=== PATIENT | male | born 1985 | race Caucasian/White ===

== ENCOUNTER 2020-08-19 10:56 | Emergency (ER) | payer MEDICARE, MEDICAID, SELFPAY ==
[2020-08-19 11:18] VITALS: BP 118/80; PULSE 86; RESP 20; TEMP 36.8; O2SAT 95; BMI 27.3
[2020-08-19] MEDS: Lidocaine HCl 2%/Epi 1:100,000 20 ML VIAL INFILTRATI (13:10)
--- NOTE | 2020-08-19 13:22 | ED.FALL ---
HPI - Fall General Chief Complaint: Fall Stated Complaint: fall, head lac Time Seen by Provider: 08/19/20 12:45 History of Present Illness HPI Narrative: 35-year-old male who presents emergency department for evaluation of laceration to forehead after falling. The patient has a history of traumatic brain injury and has difficulty with balance. He states that he lost his balance fell and struck his forehead. He denied any loss of consciousness. He states that he was able to stop the bleeding but was concerned about the size the laceration and came to the emergency department for evaluation. The injury occurred approximately 2 hours prior to coming to the emergency department. He states that he has been asymptomatic since the fall. He denied headache, nausea, lightheadedness, dizziness, weakness. The patient does not know when his last tetanus shot was given. Related Data Allergies Allergy/AdvReac Type Severity Reaction Status Date / Time No Known Allergies Allergy Unverified 05/10/20 16:33 Review of Systems Review of Systems: Yes all other systems are reviewed and are negative [facility] Past Medical History [facility] Narrative: Patient has history of traumatic brain injury. He denies tobacco, alcohol or drug use. Social History Social History Advance Directives: No Advance Directives Information Provided: Yes Physical Exam Vital Signs: Vital Signs: Last Vital Signs Temp 98.3 F 08/19/20 11:18 Pulse 86 08/19/20 11:18 Resp 20 08/19/20 11:18 BP 118/80 08/19/20 11:18 Pulse Ox 95 08/19/20 11:18 Body Mass Index 27.3 Const: General: cooperative and no acute distress Orientation/consciousness: oriented to person and oriented to place HENMT: Head: Yes hematoma (Underneath laceration) and Yes other (Complex L frontal scalp plaque with C-shaped flap, 3 cm each side of flap) Ears: hearing grossly normal bilaterally General nose exam: Normal external nose present Face and sinus: Yes normal facial exam Mouth: Normal oral and palatal mucosa present Eyes: General: appearance normal, both eyes and all related structures Periorbital: periorbital findings normal Conjunctivae: conjunctivae normal Sclerae: sclerae normal Neck: Neck: Yes normal visual inspection and Yes full ROM Chest: Chest palpation & inspection: normal inspection of the chest Resp: Effort & Inspection: normal respiratory effort Neuro: General: oriented to person and oriented to place Psych: Appearance: grossly normal Mental Status: mental status grossly normal Course Course Course Narrative: 35-year-old male with history of traumatic brain injury lost his balance, fell and struck his head on the floor, sustaining a C-shaped laceration to his left forehead. The patient has been asymptomatic since the fall and I do not think he needs a CT scan at this time and I did discuss this with the patient. The laceration was repaired with 5.0 nylon sutures times 10 interrupted sutures. There was a narrow seen aspect to the flap which I did pin down but told patient that this flap may be a vascular and may not take. I told the patient to gently clean the wound daily and apply bacitracin twice a day. He believes that his last tetanus shot was greater than 5 years prior to his given a DTaP vaccination in the emergency department. She is to follow up with his doctor in 2 days for re-evaluation in the stitches should be removed in 7-10 days. Procedures Laceration Laceration 1: Site: other (Forehead) Side (If applicable): left Size (cm): 7.0 Description: flap (C-shaped) Depth: simple, single layer Local Anesthetic: lidocaine 2% and with epi Amount of anesthesia used (mL): 10 Pre-repair: wound explored Skin layer closed with: nylon Size (cm): 5-0 Number of sutures: 10 Technique: simple, interrupted Discharge Plan Discharge Clinical Impression: Fall Qualifiers: Encounter type: initial encounter Qualified Code(s): W19.XXXA - Unspecified fall, initial encounter Head injury Qualifiers: Encounter type: initial encounter Qualified Code(s): S09.90XA - Unspecified injury of head, initial encounter Traumatic hematoma of forehead Qualifiers: Encounter type: initial encounter Qualified Code(s): S00.83XA - Contusion of other part of head, initial encounter Laceration of forehead without complication Qualifiers: Encounter type: initial encounter Qualified Code(s): S01.81XA - Laceration without foreign body of other part of head, initial encounter Patient Disposition: Home, Self-Care Instructions: Facial Laceration (ED) Additional Instructions: The laceration on your forehead was repaired with 10 interrupted stitches. The stitches need to be removed in 5-7 days by your doctor. If you cannot remove these stitches then go to an urgent care clinic or return to the emergency department. Gently clean in the laceration daily with soap and water. Apply bacitracin twice a day for 7 days. Take ibuprofen 200 mg pills, 3 pills every 6 hours as needed for pain. Take Tylenol (acetaminophen) 500 mg pills, 2 pills every 4 to 6 hours as needed for pain. Follow-up with your doctor in 2 days for wound check. Return to the emergency department if her symptoms get worse or if you develop any new symptoms that are concerning to you.
[2020-08-19] MEDS: Bacitracin Oint 14 GM TUBE 1 APPL TOPICAL (13:47)
[2020-08-19 13:59] VITALS: PULSE 80; RESP 16
--- NOTE | 2020-08-19 14:00 | PC.NURSE ---
PT REPORTS ACCIDENTAL TRIP AND FALL AT HOME, STRUCK FOREHEAD SUSTAINING LAC TO L FORHEAD. PT SUTURED BY PROVIDER. PT DENIES LOC, NO PAIN OR COMPLAINTS. PT AWARE/AGREEABLE TO PLAN OF CARE AND PENDING D/C.
== END 2020-08-19 14:01 | disposition home or self-care (01) ==
PROVIDERS: Emergency Provider Emergency Medicine Emergency Medical Services; PCP Nurse Practitioner Family
DX: S01.81XA Laceration without foreign body of other part of head, initial encounter (principal); G44.309 Post-traumatic headache, unspecified, not intractable; R26.89 Other abnormalities of gait and mobility; W01.0XXA Fall on same level from slipping, tripping and stumbling without subsequent striking against object, initial encounter; Y93.01 Activity, walking, marching and hiking; Y92.9 Unspecified place or not applicable; Y99.9 Unspecified external cause status; Z23 Encounter for immunization
CPT/HCPCS: 12014; 90471; 90715; 99284

== ENCOUNTER 2020-08-26 12:14 | Emergency (ER) | payer MEDICARE, MEDICAID, SELFPAY ==
[2020-08-26 12:37] VITALS: BP 115/80; PULSE 98; RESP 18; O2SAT 95
--- NOTE | 2020-08-26 12:53 | ED.GENADULT ---
HPI - General Adult General Chief complaint: Wound/Laceration Stated complaint: suture removal Time Seen by Provider: 08/26/20 12:53 Source: patient Mode of arrival: ambulatory Limitations: no limitations History of Present Illness HPI narrative: Here for suture removal from the top forehead area was seen here on 08/19/2020 for lack resulting from a fall requiring 10 sutures. Offers no complaints. Onset (ago): day(s) Exacerbating factors: none Treatments prior to arrival: none Related Data Allergies Allergy/AdvReac Type Severity Reaction Status Date / Time No Known Allergies Allergy Unverified 05/10/20 16:33 Review of Systems Review of Systems: Constitutional: No Weight loss, No Fever, No Chills, No Night Sweats, No Fatigue, No Malaise ENT/Mouth: No Hearing loss, No Ear Pain, No Nasal Congestion, No Sinus Pain, No Hoarseness, No sore throat, No Rhinorrhea, No Swallowing Difficulty Eyes: No Eye Pain, No Swelling, No Redness, No Foreign Body, No Discharge, No Vision Changes Cardiovascular: No Chest Pain Respiratory: No Cough Musculoskeletal: No joint pain, No Myalgias, No Joint Swelling Skin: No Skin Lesions, No rash Neuro: No Weakness, No Numbness, No Paresthesias, No Loss of Consciousness, No Dizziness, No Headache Psych: No Social Issues Heme/Lymph: No Bruising, No Bleeding,No Lymphadenopathy Endocrine: No Polyuria, No Polydipsia, No Temperature Intolerance Yes all other systems are reviewed and are negative [facility] Social History Social History Alcohol intake: never Smoking Status: Never smoker Advance Directives: No Advance Directives Information Provided: Yes Physical Exam Vital Signs: Vital Signs: Last Vital Signs Pulse 98 08/26/20 13:01 Resp 18 08/26/20 13:01 BP 115/80 08/26/20 13:01 Pulse Ox 95 08/26/20 13:01 Body Mass Index 27.3 Review Const: General: cooperative and healthy appearing; No acute distress or intoxicated appearing Nutritional Appearance: average body habitus Orientation/consciousness: patient oriented x3 HENMT: Head: Yes normal to inspection Head images: 1. Site of the laceration with slight scabbing otherwise no swelling or erythema. No tender palpation. Ears: hearing grossly normal bilaterally Eyes: General: appearance normal, both eyes and all related structures Visual Call: normal visual call by confrontation Neck: Neck: Yes normal visual inspection, No positive Brudzinski's sign, No positive Kernig's sign and No tender Thyroid: Thyroid normal Resp: Auscultation: clear to auscultation bilaterally Cardio: Rhythm: regular rhythm Heart sounds: S1 normal heart sound present and S2 normal heart sound present Skin: General skin exam: no rashes or lesions noted Neuro: General: patient oriented x3 Extrem: General: Yes normal to inspection Procedures Procedure Narrative Procedure Narrative: Forehead suture site clean with alcohol prep wipe and using suture removal kit 10 sutures removed fully intact with ease. Wound slightly scab but closed. No swelling or sign infection. Covered with bacitracin and DSD. Discharge Plan Discharge Clinical Impression: Encounter for removal of sutures Patient Disposition: Home, Self-Care Instructions: Stitches Removal (ED) Additional Instructions: Keep site clean and dry You had 10 sutures removed from the left side of forehead Site appears to be healing well Because there is a healing scabbed I did put on a Steri-Strip allow this to follow-up in the next 3-4 days Do not submerge your head under water Monitor for any signs of infection including redness, swelling, discharge if any of this presents return to the emergency room right away otherwise follow up with her primary care doctor as directed Thank you Referrals: Mir Hill, [employer] [Primary Care Provider] - 1 week Interventions: ED Discharge Assessment Last Done: 08/26/20 13:11 Discharge Date/Time: 08/26/20 13:12
[2020-08-26 13:01] VITALS: BP 115/80; PULSE 98; RESP 18; O2SAT 95; BMI 27.3
== END 2020-08-26 13:12 | disposition home or self-care (01) ==
PROVIDERS: Emergency Provider Emergency Medicine; PCP Nurse Practitioner Family
DX: Z48.02 Encounter for removal of sutures (principal)
CPT/HCPCS: 99283

== ENCOUNTER 2020-10-23 11:11 | Outpatient (REF) | payer MEDICARE, MEDICAID, SELFPAY | END 2020-10-23 11:12 | disposition home or self-care (01) | LOC: HO.LAB 11:11 | PROVIDERS: Visit Provider Internal Medicine | DX: Z20.822 Contact with and (suspected) exposure to COVID-19 (principal) | CPT/HCPCS: 36415; C9803; U0003; U0005 ==

== ENCOUNTER 2021-05-13 09:38 | Outpatient (REF) | payer MEDICARE, MEDICAID, SELFPAY ==
--- NOTE | ~2021-05-13 | XR_ITS ---
EXAMINATION: XR ELBOW, LEFT CLINICAL INFORMATION: Pain. Bursal but they. COMPARISON: None TECHNIQUE: AP, lateral, and oblique views of the left elbow. FINDINGS: There is a moderate-sized olecranon process enthesophyte with posterior soft tissue swelling likely bursitis. The joint space is maintained. No acute fracture or loose body seen. No acute fracture or dislocation. XR/XR elbow LT min 3V IMPRESSION: Moderate-sized posterior olecranon process enthesophyte with moderate posterior elbow soft tissue swelling likely bursitis. No acute fracture.
== END 2021-05-13 09:39 | disposition home or self-care (01) ==
LOC: HO.HMGCX 09:38
PROVIDERS: PCP Nurse Practitioner Family; Visit Provider Internal Medicine
DX: Z13.89 Encounter for screening for other disorder (principal)
CPT/HCPCS: 73080

== ENCOUNTER 2021-05-22 09:23 | Emergency (ER) | payer MEDICARE, MEDICAID, SELFPAY ==
--- NOTE | ~2021-05-22 | US_ITS ---
EXAMINATION: ULTRASOUND EXTREMITY NONVASCULAR CLINICAL INFORMATION: Recent fall onto left elbow. Evaluate for hematoma versus abscess. COMPARISON: Previous x-ray 05/13/2021 TECHNIQUE: Grayscale and color imaging of the left elbow using a linear transducer FINDINGS: There is diffuse soft tissue swelling and increased vascularity in the area of palpable abnormality. No focal mass or fluid collection is seen. US/US extremity nonvascular crum IMPRESSION: Diffuse soft tissue swelling and increased vascularity. No focal abnormality seen by ultrasound.
--- NOTE | ~2021-05-22 | XR_ITS ---
EXAMINATION: XR ELBOW, LEFT CLINICAL INFORMATION: Pain and swelling. Trauma. COMPARISON: None TECHNIQUE: AP, lateral, and oblique views of the left elbow. FINDINGS: There is a small coronoid and olecranon process spur. No visible acute fracture or dislocation seen. There is no abnormal joint effusion. There is moderate posterior elbow soft tissue swelling.. XR/XR elbow LT min 3V IMPRESSION: Moderate size olecranon process and small coronoid process spurs from old injury. There is moderate posterior elbow soft tissue swelling. No visible acute fracture or dislocation seen.
--- NOTE | 2021-05-22 09:33 | ED.GENADULT ---
HPI - General Adult General Chief complaint: Extremity Injury, Upper Stated complaint: L elbow pain Time Seen by Provider: 05/22/21 09:33 Source: patient and family Limitations: no limitations History of Present Illness HPI narrative: Patient presents to the ER complaining of left elbow pain. Patient had a recent fall on the elbow with a small abrasion was treated with antibiotics. Patient was seen at an [facility] urgent care today and told question infectious bursitis. Patient has a history of a TBI according to family. Patient denies any recent fevers. Patient family are unsure of what antibiotics he was recently on. Patient denies any IV drug use. Patient denies history of diabetes. Symptoms are mild to moderate pain increases with range of motion. Related Data Previous Rx's Medication Instructions Recorded meloxicam 15 mg tablet 15 mg PO DAILY #14 tab 05/13/21 doxycycline hyclate 100 mg capsule 100 mg PO BID 14 Days #28 cap 05/22/21 tramadol 50 mg tablet 50 mg PO Q12H PRN #10 tab 05/22/21 Allergies Allergy/AdvReac Type Severity Reaction Status Date / Time No Known Allergies Allergy Verified 04/30/21 17:10 Review of Systems Review of Systems: Constitutional : No Weight loss, No Fever, No chills ENT/Mouth : Denies sore throat nasal congestion Cardiovascular : No Chest Pain, No SOB Respiratory : No Cough, No Sputum, No Wheezing, No Smoke Exposure, No Dyspnea Gastrointestinal : No Nausea, No Vomiting, No Diarrhea, no abdominal pain Musculoskeletal : Left elbow forearm pain Neuro : No Weakness, No Numbness, No Paresthesias, No Loss of Consciousness, No Dizziness, No Headache Psych : No Anxiety/Panic, No Depression, No SI/HI/AH/VH, No Social Issues, Heme/Lymph: Skin abrasion left forearm positive erythema and redness Endocrine : No Polyuria, No Polydipsia, No Temperature Intolerance PMFSH Past Medical History Attestation statement: The following information was validated with the patient. Medical History (Updated 05/22/21 @ 12:30 by Griffin Wayne) Brain injury Social History Social History Alcohol intake: never Advance Directives: No Physical Exam Vital Signs: Vital Signs: Last Vital Signs Temp 97.9 F 05/22/21 09:46 Pulse 101 H 09/29/21 09:46 Resp 16 05/22/21 09:46 BP 135/86 05/22/21 09:46 Pulse Ox 97 05/22/21 09:46 Body Mass Index 30.1 vital signs have been reviewed as normal and appeared to be correct. Blood pressure normal. Heart rate normal. Respiration rate normal. Temperature normal. Oxygen saturation normal. Appearance: Alert. Oriented X3. No acute distress. Head: Normal external exam. Normocephalic. Atraumatic. Eyes: PERRLA. EOMI. ENT: Pharynx normal. Uvula midline. Moist mucous membranes. Neck: Soft full range of motion, no JVD CVS: Heart regular rate and rhythm no murmurs and rubs Respiratory: Breath sounds are clear to auscultation bilaterally. No accessory muscle use noted. Abdomen: Soft nontender no rebound or guarding positive bowel sounds Back: No CVA tenderness. Full range of motion noted. Skin: Left forearm area of induration. No obvious fluctuance in the left forearm. Positive firmness question hematoma Extremities: Left elbow olecranon positive edema nontender positive tenderness just distal to the elbow forearm with some firmness and erythema. No obvious lymphangitis noted. Distal pulses are intact full range of motion of the left upper extremity. Medial and lateral epicondyles nontender Neuro: Oriented X 3. No motor deficit. No sensory deficit. Reflexes normal. Course Course Course Narrative: Left forearm abscess Traumatic bursitis Olecranon bursitis Left elbow infectious bursitis Left elbow fracture Contusion forearm hematoma Patient family reports the original injury happened 2 months prior. Patient has since had x-rays of the left elbow that were negative. And also trialed on antibiotics. Patient's olecranon is nontender with no obvious erythema or discharge at this time. 11:03 a.m. Case discussed with Dr. Nur ultrasound shows no obvious collection of fluid to drain at this time. CBC BMP is pending the olecranon bursitis follow-up with Orthopedic will be recommended. Would not drain olecranon bursa at this time secondary risk of infection. 11:29 a.m. 2 g Ancef IV will Natan shoe left elbow x-ray at this time rule out proximal radial head fracture 12:28 p.m. Patient has scheduled follow-up with PCP patient is also recommended follow-up with orthopedics. Sling rest elevation antibiotics as directed. Medical Decision Making Lab Data Result diagrams: 05/22/21 11:05 05/22/21 11:05 Labs: Lab Results 05/22/21 05/22/21 Range/Units 11:05 11:05 WBC 8.5 (4.8-10.8) X10*3/uL RBC 5.31 (4.60-5.80) X10*6/uL Hgb 15.4 (14.0-18.0) g/dl Hct 45.8 (42-52) % MCV 86.3 (80-98) fL MCH 29.0 (27.0-33.0) pg MCHC 33.6 (31.0-36.0) g/dl RDW 13.2 (11.0-16.0) % Plt Count 212 (160-400) X10*3/uL MPV 9.8 (9.4-12.4) fL Immature Gran % (Auto) 0.4 (0.0-0.4) % Neut % (Auto) 76.0 H (45-73) % Lymph % (Auto) 12.9 L (20-40) % Avery % (Auto) 9.7 (2-11) % Eos % (Auto) 0.6 (0-4) % Baso % (Auto) 0.4 (0-2) % Lymph # (Auto) 1.1 L (1.2-4.9) X10*3/uL Avery # (Auto) 0.8 (0.1-1.2) X10*3/uL Eos # (Auto) 0.1 (0.0-0.4) X10*3/uL Baso # (Auto) 0.0 (0.0-0.2) X10*3/uL Abs Immat Gran (auto) 0.03 (0.00-0.03) X10*3/uL Absolute Neuts (auto) 6.5 (2.0-8.3) X10*3/uL Absolute Nucleated RBC 0.000 (0.0-0.012) X10*3/uL Nucleated RBC % (auto) 0.0 (0.0-0.2) /100WBC Sodium 138 (135-145) mmol/L Potassium 4.1 (3.3-5.1) mmol/L Chloride 106 (96-108) mmol/L Carbon Dioxide 23 (22-29) mmol/L Anion Gap 13 (12-20) BUN 14 (9-16) mg/dL Creatinine 0.73 (0.5-1.4) mg/dL Estim Creat Clear Calc 150.8 Estimated GFR > 60 Random Glucose 109 (60-115) mg/dL Calcium 8.8 (8.4-10.2) mg/dL Imaging Data US left upper ext : Radiologist's impression: [address] [address] Ultrasound Report Signed Patient: Loki Esteves MR#: [id number] : 1985 Acct:[id number] Age/Sex: 36 / M ADM Date: 05/22/21 Loc: .ED Attending Dr: Ordering Physician: Griffin Wayne Date of Service: 05/22/21 Procedure(s): US extremity nonvascular crum Accession Number(s): [id number] cc: Griffin Wayne ~ EXAMINATION: ULTRASOUND EXTREMITY NONVASCULAR CLINICAL INFORMATION: Recent fall onto left elbow. Evaluate for hematoma versus abscess.? COMPARISON: Previous x-ray 05/13/2021? TECHNIQUE: Grayscale and color imaging of the left elbow using a linear transducer ? FINDINGS: There is diffuse soft tissue swelling and increased vascularity in the area of palpable abnormality. No focal mass or fluid collection is seen. US/US extremity nonvascular crum IMPRESSION: Diffuse soft tissue swelling and increased vascularity. No focal abnormality seen by ultrasound. Dictated By: Carol Jimenez MD Signed By: <Electronically signed by Carol Jimenez MD in OV> 05/22/21 1048 DD/ 0955 TD/TT:? Business Intelligence Developer: JESSA elbow: Radiologist's impression: [address] [address] XRay Report Signed Patient: Loki Esteves MR#: [id number] : 1985 Acct:[id number] Age/Sex: 36 / M ADM Date: 05/22/21 Loc: .ED Attending Dr: Ordering Physician: Griffin Wayne Date of Service: 05/22/21 Procedure(s): XR elbow LT min 3V Accession Number(s): [id number] cc: Griffin Wayne ~ EXAMINATION: XR ELBOW, LEFT CLINICAL INFORMATION: Pain and swelling. Trauma.? COMPARISON: None? TECHNIQUE: AP, lateral, and oblique views of the left elbow. FINDINGS: There is a small coronoid and olecranon process spur. No visible acute fracture or dislocation seen. There is no abnormal joint effusion. There is moderate posterior elbow soft tissue swelling.. XR/XR elbow LT min 3V IMPRESSION: Moderate size olecranon process and small coronoid process spurs from old injury. There is moderate posterior elbow soft tissue swelling. ? No visible acute fracture or dislocation seen. Dictated By: Roland Aguirre MD Signed By: <Electronically signed by Roland Aguirre MD in OV> 05/22/21 1206 DD/ 1128 Discharge Plan Discharge Clinical Impression: Bilateral olecranon bursitis Cellulitis Qualifiers: Site of cellulitis: extremity Site of cellulitis of extremity: upper extremity Laterality: left Qualified Code(s): L03.114 - Cellulitis of left upper limb Patient Disposition: Home, Self-Care Additional Instructions: It is important to rest and elevate the left upper extremity Continue antibiotics as directed Follow-up with PCP and Orthopedics. Prescriptions: New doxycycline hyclate 100 mg capsule 100 mg PO BID 14 Days Qty: 28 RF: 0 tramadol 50 mg tablet 50 mg PO Q12H PRN (Reason: pain) Qty: 10 RF: 0 No Action meloxicam 15 mg tablet 15 mg PO DAILY Qty: 14 RF: 0 Referrals: Juan Carlos Hendrickson MD [Physician] - 2 days (Olecranon bursitis)
[2021-05-22 09:46] VITALS: BP 135/86; PULSE 101; RESP 16; TEMP 36.6; O2SAT 97; BMI 30.1
[2021-05-22 11:15] LABS: MANUAL DIFF FLAG NO
[2021-05-22] MEDS: Ibuprofen 600 MG TABLET PO (11:17)
[2021-05-22 11:19] LABS: Basophils Percent Auto 0.4 % (0-2); Eosinophils Absolute Auto 0.1 X10*3/uL (0.0-0.4); Eosinophils Percent Auto 0.6 % (0-4); Hematocrit 45.8 % (42-52); Hemoglobin 15.4 g/dl (14.0-18.0); Imm Gran Abs Auto 0.03 X10*3/uL (0.00-0.03); Imm Gran Pct Auto 0.4 % (0.0-0.4); Lymphocytes Absolute Auto 1.1 X10*3/uL (1.2-4.9); Lymphocytes Percent Auto 12.9 % (20-40); Mean Corpuscular HGB Conc 33.6 g/dl (31.0-36.0); Mean Corpuscular Volume 86.3 fL (80-98); Mean Platelet Volume 9.8 fL (9.4-12.4); Monocytes Absolute Auto 0.8 X10*3/uL (0.1-1.2); Monocytes Percent Auto 9.7 % (2-11); Neutrophils Absolute Auto 6.5 X10*3/uL (2.0-8.3); Platelet Count 212 X10*3/uL (160-400); Red Blood Count 5.31 X10*6/uL (4.60-5.80); Red Cell Distribution Width 13.2 % (11.0-16.0); White Blood Count 8.5 X10*3/uL (4.8-10.8)
[2021-05-22 11:32] LABS: Anion Gap 13 (12-20); Blood Urea Nitrogen 14 mg/dL (9-16); Calcium 8.8 mg/dL (8.4-10.2); Carbon Dioxide 23 mmol/L (22-29); Chloride 106 mmol/L (96-108); Creatinine Clr Calc Pharmacy 150.8; Estimated Glomerular Filt Rate > 60; Glucose Random 109 mg/dL (60-115); Potassium 4.1 mmol/L (3.3-5.1); Sodium 138 mmol/L (135-145)
[2021-05-22] MEDS: ceFAZolin Sodium/Dextrose,Iso 2 GM/50 ML PIGGYBACK IV (11:58)
[2021-05-22] MEDS: traMADoL HCL 50 MG TABLET PO (12:29)
== END 2021-05-22 12:57 | disposition home or self-care (01) ==
PROVIDERS: Physician Assistant; Emergency Provider Emergency Medicine Emergency Medical Services; PCP Nurse Practitioner Family
DX: M70.21 Olecranon bursitis, right elbow (principal); M70.22 Olecranon bursitis, left elbow; L03.114 Cellulitis of left upper limb; Z79.899 Other long term (current) drug therapy
CPT/HCPCS: 36415; 73080; 76882; 80048; 85025; 96365; 99284; J0690

== ENCOUNTER 2021-08-14 23:37 | Emergency (ER) | payer MEDICARE, MEDICAID, SELFPAY ==
--- NOTE | ~2021-08-14 | CT_ITS ---
EXAMINATION: CT HEAD WITHOUT CONTRAST CLINICAL INFORMATION: History of TBI. Head injury. COMPARISON: 03/21/2020 TECHNIQUE: Contiguous axial imaging was performed from the skull base to vertex without intravenous contrast. This CT examination was performed using dose optimization techniques as appropriate, variously including the following: * Automated exposure control * Adjustment of mA and/or kV according to patient size (this includes techniques or standardized protocols for targeted exams where dose is matched to indication/reason for exam; i.e. extremities or head) Use of iterative reconstruction technique DLP: 922 mGy-cm. FINDINGS: There is no evidence of acute intracranial hemorrhage or territorial infarction. No abnormal mass effect or midline shift is seen. Gonzalez to white matter differentiation is well preserved. No extra-axial fluid collections are identified. No hydrocephalus. No significant volume loss. Area of encephalomalacia at the high right frontal lobe, unchanged. The osseous structures and soft tissues are normal. The mastoid air cells and visualized portions of the paranasal sinuses are well aerated. CT/CT head/brain wo con IMPRESSION: No acute intracranial pathology.
[2021-08-15 00:08] VITALS: BP 128/77; PULSE 84; RESP 17; TEMP 36.9; O2SAT 96; BMI 27.3
--- NOTE | 2021-08-15 00:12 | ED_ITS ---
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 Patient reports he was taking out his earring, lost his balance, and fell to ground hitting head on radiator. Denies LOC. Denies any anticoagulation. Denies symptoms prior to fall. Denies headache, vision changes, nausea/vomiting, CP/SOB, abdominal pain. Tetanus up-to-date MD complaint: fall Onset (ago): minute(s) Fall from: standing Related Data Previous Rx's Medication Instructions Recorded doxycycline hyclate 100 mg capsule 100 mg PO BID 14 Days #28 cap 05/25/21 Allergies Allergy/AdvReac Type Severity Reaction Status Date / Time No Known Allergies Allergy Verified 06/10/21 07:49 Review of Systems Review of Systems: Constitutional: No Fever, No Chills, No Fatigue, No Malaise ENT/Mouth: No Hearing loss, No Ear Pain, No Nasal Congestion, No sore throat, No Rhinorrhea, No Swallowing Difficulty Eyes: No Eye Pain, No Swelling, No Redness, No Discharge, No Vision Changes Cardiovascular: No Chest Pain, No SOB, No Edema Respiratory: No Cough, No Dyspnea Gastrointestinal: No Nausea, No Vomiting, No Diarrhea, No Constipation, No Abdominal pain Genitourinary: No Dysuria, No Urinary Incontinence, No Urgency, No Flank Pain Musculoskeletal: No joint pain, No Myalgias, No Joint Swelling Skin: + Skin Lesions, No rash Neuro: No Weakness, No Loss of Consciousness, No Dizziness, No Headache Yes all other systems are reviewed and are negative Neurologic: Denies Abnormal speech present PMFSH Past Medical History Attestation statement: The following information was validated with the patient. Medical History Brain injury Social History Social History Housing: House Alcohol intake: never Patient Tobacco Use Status: Former Tobacco user (15 years ) Tobacco use type: Cigarette Advance Directives: No Current occupational status: disabled Physical Exam Vital Signs: Vital Signs: Last Vital Signs Temp 98.4 F 12/23/21 00:08 Pulse 84 08/15/21 00:08 Resp 17 08/15/21 00:08 BP 128/77 08/15/21 00:08 Pulse Ox 96 08/15/21 00:08 BMI result Body Mass Index 27.3 Const: General: cooperative, healthy appearing and no acute distress Orientation/consciousness: patient oriented x3 Limitations: no limitations HENMT: Other: + 2.5 linear laceration noted to right parietal region. Bleeding controlled. No underlying hematoma Ears: hearing grossly normal bilaterally General nose exam: Normal external nose present Face and sinus: Yes normal facial exam Throat: Yes posterior oropharynx normal Eyes: General: appearance normal, both eyes and all related structures Pupils: Equal, round and reactive pupils present EOM: EOMs intact bilaterally Neck: Other: No midline cervical spinous tenderness/step-off or deformity Neck: Yes normal visual inspection Resp: Effort & Inspection: normal respiratory effort and no respiratory distress Cardio: Rate: regular rate Heart sounds: S1 normal heart sound present and S2 normal heart sound present GI: Inspection: Yes normal to inspection Palpation (GI): Soft to palpation, nontender and no guarding Skin: Rashes: no rashes Neuro: General: patient oriented x3, tone normal, moves all extremities, no focal motor deficits and CN's II-XI intact bilaterally Cranial nerves: Yes CN's II-XII intact bilaterally, Yes Equal, round and reactive pupils present and Yes Bilaterally intact EOM present Cognition (Neuro): normal cognition Speech: No Abnormal speech present Gait exam (Neuro): Normal gait present Extrem: General: Yes normal to inspection Course Course Course Narrative: -99-- ED care transferred to [facility] pending Head CT and anticipated d/c home Procedures Laceration Laceration 1: Site: scalp Side (If applicable): right Size (cm): 2.5 Description: linear Depth: simple, single layer Pre-repair: wound explored Number of sutures: 5 (vipin) MDM - Fall MDM Narrative Medical decision making narrative: 36-year-old male with past medical history of TBI presenting to the ED complaining of laceration to 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 On exam vital signs stable, NAD/well-appearing, no focal neuro deficits, 2.5 cm laceration noted right parietal region, bleeding controlled. Concern for ICH/fracture. Plan: Head CT, repair laceration with vipin Medical Records Attestation: I reviewed the patient's medical records. Lab Data Attestation: I reviewed the patient's lab results. Discharge Plan Discharge Clinical Impression: Laceration of scalp Qualifiers: Encounter type: initial encounter Qualified Code(s): S01.01XA - Laceration without foreign body of scalp, initial encounter Fall Qualifiers: Encounter type: initial encounter Qualified Code(s): W19.XXXA - Unspecified fall, initial encounter Patient Disposition: Still a Patient Instructions: Head Laceration (ED) Additional Instructions: You need to have your vipin taken out in 7-10 days, return to any emergency department or urgent care Keep area dry and clean. Do not scrub. pat dry If area begins look infected, is red, there is drainage or you fever please return to the ED. If you have constant or worsening headache, nausea, or vomiting please return to the ED Prescriptions: No Action doxycycline hyclate 100 mg capsule 100 mg PO BID 14 Days Qty: 28 RF: 0 Referrals: ED Physician,Generic [Emergency Provider] - 1 week (7-10 days for staple removal)
--- NOTE | 2021-08-15 01:03 | PC.NURSE ---
REPORT GIVEN TO FERNANDO RUIZ.
== END 2021-08-15 01:24 | disposition home or self-care (01) ==
PROVIDERS: Emergency Provider Student in an Organized Health Care Education/Training Program; PCP Nurse Practitioner Family
DX: S01.01XA Laceration without foreign body of scalp, initial encounter (principal); G44.309 Post-traumatic headache, unspecified, not intractable; W01.0XXA Fall on same level from slipping, tripping and stumbling without subsequent striking against object, initial encounter; Y93.9 Activity, unspecified; Y92.9 Unspecified place or not applicable; Y99.9 Unspecified external cause status; Z79.899 Other long term (current) drug therapy; Z87.891 Personal history of nicotine dependence
CPT/HCPCS: 70450; 99283; 99284

== ENCOUNTER 2021-08-26 16:52 | Emergency (ER) | payer MEDICARE, MEDICAID, SELFPAY ==
[2021-08-26 17:58] VITALS: BP 125/81; PULSE 81; RESP 16; TEMP 36.4; O2SAT 97; BMI 27.3
--- NOTE | 2021-08-26 18:12 | ED.WOUNDLAC ---
HPI - Wound/Laceration General Chief Complaint: Wound/Laceration Stated Complaint: staple removal Time Seen by Provider: 08/26/21 18:12 Source: patient Mode of arrival: ambulatory Limitations: no limitations History of Present Illness HPI narrative: 36 y/o male presenting for evaluation of his head wound and staple removal. He was seen here on 08/15 after a fall and required 5 vipin for closure. He reports no issues and he denies any pain, redness or drainage. Location: scalp Place: outdoors Patient tetanus UTD: Yes Context: accidental Associated symptoms: none Related Data Previous Rx's Medication Instructions Recorded doxycycline hyclate 100 mg capsule 100 mg PO BID 14 Days #28 cap 05/25/21 Allergies Allergy/AdvReac Type Severity Reaction Status Date / Time No Known Allergies Allergy Verified 06/10/21 07:49 Review of Systems Review of Systems: Constitutional: No Fever, No Chills Gastrointestinal: No Nausea, No Vomiting Musculoskeletal: No joint pain, No Myalgias Skin: + Skin Lesions, No rash Neuro: No Weakness, No Numbness, No Dizziness, No Headache Heme/Lymph: No Bruising PMFSH Past Medical History Medical History Brain injury Social History Social History Housing: House Alcohol intake: never Patient Tobacco Use Status: Former Tobacco user (15 years ) Tobacco use type: Cigarette Advance Directives: No Advance Directives Information Provided: No Current occupational status: disabled Physical Exam Vital Signs: Vital Signs: Last Vital Signs Temp 97.5 F 08/26/21 17:58 Pulse 81 08/26/21 17:58 Resp 16 08/26/21 17:58 BP 125/81 08/26/21 17:58 Pulse Ox 97 08/26/21 17:58 BMI result Body Mass Index 27.3 Appearance: Alert. Oriented X3. No acute distress. HEENT: right posterior parietal scalp with crusting, appropriate healing with [address] CVS: Normal heart rate and rhythm. Pulses normal. Respiratory: No respiratory distress. Skin: Skin warm and dry. Normal skin color. Normal skin turgor. No rashes. Extremities: atraumatic, normal inspection Neuro: awake and alert, slow to respond but this is baseline Course Course Course Narrative: 36 y/o male presenting for staple removal. He has [address] on his posterior right parietal area that is healed appropriately. Five vipin are removed with no complications. Patient tolerated well. Wound care discussed with patient he is stable for discharge home. Discharge Plan Discharge Clinical Impression: Encounter for removal of vipin Patient Disposition: Home, Self-Care Instructions: Stitches Removal (ED) Additional Instructions: follow up with your doctor as needed Prescriptions: No Action doxycycline hyclate 100 mg capsule 100 mg PO BID 14 Days Qty: 28 RF: 0
== END 2021-08-26 18:34 | disposition home or self-care (01) ==
PROVIDERS: Emergency Provider Emergency Medicine; PCP Nurse Practitioner Family
DX: Z48.02 Encounter for removal of sutures (principal); S01.01XD Laceration without foreign body of scalp, subsequent encounter; W19.XXXD Unspecified fall, subsequent encounter
CPT/HCPCS: 99282; 99283

== ENCOUNTER 2021-09-12 11:43 | Outpatient (REF) | payer MEDICARE, MEDICAID, SELFPAY ==
[2021-09-12 12:03] LABS: COVID-19 Test Negative (Negative)
== END 2021-09-12 11:44 | disposition home or self-care (01) ==
LOC: HO.LAB 11:43
PROVIDERS: Visit Provider Internal Medicine
DX: Z20.822 Contact with and (suspected) exposure to COVID-19 (principal)
CPT/HCPCS: 87635; C9803

== ENCOUNTER 2022-03-21 07:48 | Outpatient (REF) | payer MEDICARE, MEDICAID, SELFPAY ==
[2022-03-21 08:25] LABS: COVID-19 Test Positive (Negative)
== END 2022-03-21 07:49 | disposition home or self-care (01) ==
LOC: HO.LAB 07:48
PROVIDERS: Visit Provider Internal Medicine
DX: Z20.822 Contact with and (suspected) exposure to COVID-19 (principal)
CPT/HCPCS: 87635; C9803

== ENCOUNTER 2022-03-25 20:06 | Emergency (ER) | payer MEDICARE, MEDICAID, SELFPAY ==
--- NOTE | ~2022-03-25 | CT_ITS ---
EXAMINATION: CT HEAD WITHOUT CONTRAST CT CERVICAL SPINE WITHOUT CONTRAST CLINICAL INFORMATION: Headache. Neck pain. Fall. COMPARISON: Multiple priors. Most recent exam CT head 08/15/2021 TECHNIQUE: Imaging was performed from the skull base to vertex without intravenous administration of contrast. In addition, helical noncontrast CT imaging was acquired through the cervical spine and source images were reviewed along with axial reconstructions and sagittal and coronal MPRs. [This CT examination was performed using dose optimization techniques as appropriate, variously including the following: *Automated exposure control *Adjustment of mA and/or kV according to patient size (this includes techniques or standardized protocols for targeted exams where dose is matched to indication/reason for exam; i.e. extremities or head) *Use of iterative reconstruction technique] DLP: 1462 mGy-cm FINDINGS: HEAD: Left sided parietal scalp hematoma. No skull fracture. 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 No intracranial mass, hemorrhage, or midline shift is visualized. The ventricles and sulci are proportional. No extra-axial collections are identified. Sinus mucosal disease in the ethmoid sinuses bilateral. Mastoid air cells and middle ear cavities are normally aerated. CERVICAL SPINE: There is no evidence of acute cervical spine fracture. Vertebral bodies remain normal in height. There are degenerative endplate spurs at C3-C4, C4-C5, C5-C6 and C6-C7. Mild disc height narrowing at C4-C5 through C6-C7. The facet joints are normal. Cervical vertebrae have normal alignment. No pre- or paravertebral soft tissue abnormality is identified. Limited assessment of the lung apices is unremarkable. CT/CT cervical spine wo con IMPRESSION: 1. No acute intracranial pathology. 2. No CT evidence of acute cervical spine fracture or traumatic subluxation
[2022-03-25 20:19] VITALS: BP 140/87; PULSE 93; RESP 18; TEMP 36.6; O2SAT 99
--- NOTE | 2022-03-25 20:19 | ED_ITS ---
HPI - Fall General Chief Complaint: Fall Stated Complaint: head strike Time Seen by Provider: 03/25/22 20:14 Source: patient Mode of arrival: EMS Limitations: no limitations History of Present Illness HPI Narrative: Patient with history of TBI was going upstairs lost balance and fell backwards came with laceration to the occipital area no loss of consciousness no seizures patient COVID positive on 03/21 not vaccinated no shortness of breath or cough Related Data Previous Rx's Medication Instructions Recorded cane #1 ea 10/16/21 Allergies Allergy/AdvReac Type Severity Reaction Status Date / Time No Known Allergies Allergy Verified 12/26/21 14:40 Review of Systems Review of Systems: Yes all other systems are reviewed and are negative [facility] Past Medical History Medical History Brain injury Social History Social History Housing: House Alcohol intake: unknown Patient Tobacco Use Status: Former Tobacco user Tobacco use type: Cigarette e-Cigarette/Vaping Use: Never Used Second Hand Smoke Exposure: No Use of substances other than those prescribed or required for medical reasons: No Advance Directives: No Advance Directives Information Provided: No Current occupational status: disabled Cognitive needs: Yes Hearing needs: No Vision needs: No Physical Exam Vital Signs: Vital Signs: Last Vital Signs Temp 99.1 F 03/25/22 22:00 Pulse 74 03/25/22 22:00 Resp 16 03/25/22 22:00 BP 135/75 03/25/22 22:00 Pulse Ox 98 03/25/22 22:00 O2 Del Method 03/25/22 22:00 BMI result Body Mass Index 38.0 Appearance: Alert. Oriented X3. . Eyes: PERRLA, No Nystagmus ENT: Pharynx normal. Oral Mucosa moist laceration to the back of the scalp Neck: Normal inspection. Neck supple. CVS: Normal heart rate and rhythm. Pulses normal. Respiratory: No respiratory distress. Equal air entry bilateral, no wheezing/rales/rhonchi Abdomen: Soft and nontender. Bowel sounds are present, no mass palpable, no CVA tenderness Skin: Skin warm and dry. Normal skin color. Normal skin turgor. Extremities: No lower extremity edema. No calf tenderness Neuro: Oriented X 3. No motor deficit. No sensory deficit.No cerebellar signs , cranial nerves II-XII intact slow to speak Const: General: healthy appearing and well developed HEENT: Head images: 1. 8 cm long laceration Ears: hearing grossly normal bilaterally Procedures Laceration Laceration 1: Site: scalp Side (If applicable): left Size (cm): 8 Description: linear Skin layer closed with: other ([place]#[id number]) MDM - Fall MDM Narrative Medical decision making narrative: Patient had CT and C-spine negative labs are stable laceration stapled bleeding controlled discharge patient home Lab Data Attestation: I reviewed the patient's lab results. Result diagrams: 03/25/22 20:57 03/25/22 20:57 Labs: Lab Results 03/25/22 03/25/22 03/25/22 Range/Units 20:12 20:57 20:57 WBC 5.5 (4.8-10.8) X10*3/uL RBC 5.26 (4.60-5.80) X10*6/uL Hgb 15.3 (14.0-18.0) g/dl Hct 43.3 (42.0-52.0) % MCV 82.3 (80.0-98.0) fL MCH 29.1 (27.0-33.0) pg MCHC 35.3 (31.0-36.0) g/dl RDW 13.0 (11.0-16.0) % Plt Count 231 (160-400) X10*3/uL MPV 9.7 (9.4-12.4) fL Immature Gran % (Auto) 0.4 (0.0-0.4) % Neut % (Auto) 53.7 (45-73) % Lymph % (Auto) 36.6 (20-40) % [place] % (Auto) 7.3 (2-11) % Eos % (Auto) 1.6 (0-4) % Baso % (Auto) 0.4 (0-2) % Lymph # (Auto) 2.0 (1.2-4.9) X10*3/uL [place] # (Auto) 0.4 (0.1-1.2) X10*3/uL Eos # (Auto) 0.1 (0.0-0.4) X10*3/uL Baso # (Auto) 0.0 (0.0-0.2) X10*3/uL Abs Immat Gran (auto) 0.02 (0.00-0.03) X10*3/uL Absolute Neuts (auto) 2.9 (2.0-8.3) x10*3/uL Absolute Nucleated RBC 0.000 (0.0-0.012) X10*3/uL Nucleated RBC % (auto) 0.0 (0.0-0.2) /100WBC Sodium 139 (135-145) mmol/L Potassium 3.6 (3.3-5.1) mmol/L Chloride 107 (96-108) mmol/L Carbon Dioxide 22 (22-29) mmol/L Anion Gap 14 (12-20) BUN 12 (9-16) mg/dL Creatinine 0.75 (0.5-1.4) mg/dL Estim Creat Clear Calc TNP Estimated GFR > 60 Random Glucose 113 (60-115) mg/dL Calcium 8.7 (8.4-10.2) mg/dL Magnesium 2.1 (1.6-2.6) mg/dL Total Bilirubin 0.4 (0.0-1.0) mg/dL AST 35 (5-37) U/L ALT 62 H (0-40) U/L Alkaline Phosphatase 79 (39-117) U/L Total Protein 7.4 (6.5-8.0) g/dL Albumin 4.0 (3.5-5.0) g/dL Ethyl Alcohol < 10 mg/dL COVID-19 ([facility]) Positive A (Negative) COVID-19 Clin Com See Note Discharge Plan Discharge Clinical Impression: Laceration of scalp, Head injury Patient Disposition: Home, Self-Care Instructions: Laceration (ED), Head Injury (ED) Additional Instructions: Local care as advised [place] removal in 7-10 days Prescriptions: No Action (DME) cane Device See Rx Instructions .Route Qty: 1 0RF Rx Instructions: As directed Interventions: ED Discharge Assessment Last Done: 03/25/22 22:42 Discharge Date/Time: 03/25/22 22:43
[2022-03-25 21:03] LABS: MANUAL DIFF FLAG NO
[2022-03-25 21:07] LABS: Basophils Percent Auto 0.4 % (0-2); Eosinophils Absolute Auto 0.1 X10*3/uL (0.0-0.4); Eosinophils Percent Auto 1.6 % (0-4); Hematocrit 43.3 % (42.0-52.0); Hemoglobin 15.3 g/dl (14.0-18.0); Imm Gran Abs Auto 0.02 X10*3/uL (0.00-0.03); Imm Gran Pct Auto 0.4 % (0.0-0.4); Lymphocytes Percent Auto 36.6 % (20-40); Mean Corpuscular HGB Conc 35.3 g/dl (31.0-36.0); Mean Corpuscular Hemoglobin 29.1 pg (27.0-33.0); Mean Corpuscular Volume 82.3 fL (80.0-98.0); Mean Platelet Volume 9.7 fL (9.4-12.4); Monocytes Absolute Auto 0.4 X10*3/uL (0.1-1.2); Monocytes Percent Auto 7.3 % (2-11); Neutrophils Absolute Auto 2.9 x10*3/uL (2.0-8.3); Neutrophils Percent Auto 53.7 % (45-73); Platelet Count 231 X10*3/uL (160-400); Red Blood Count 5.26 X10*6/uL (4.60-5.80); White Blood Count 5.5 X10*3/uL (4.8-10.8)
[2022-03-25 21:13] LABS: COVID-19 Test Positive (Negative); IDNOW Serial# 16C4AD1C
[2022-03-25 21:34] LABS: Alanine Aminotransferase 62 U/L (0-40); Alkaline Phosphatase 79 U/L (39-117); Anion Gap 14 (12-20); Aspartate Amino Transferase 35 U/L (5-37); Bilirubin Total 0.4 mg/dL (0.0-1.0); Blood Urea Nitrogen 12 mg/dL (9-16); Calcium 8.7 mg/dL (8.4-10.2); Carbon Dioxide 22 mmol/L (22-29); Chloride 107 mmol/L (96-108); Estimated Glomerular Filt Rate > 60; Ethanol < 10 mg/dL; Glucose Random 113 mg/dL (60-115); Magnesium 2.1 mg/dL (1.6-2.6); Potassium 3.6 mmol/L (3.3-5.1); Sodium 139 mmol/L (135-145); Total Protein 7.4 g/dL (6.5-8.0)
[2022-03-25 21:45] VITALS: BMI 38.0
[2022-03-25 22:00] VITALS: BP 135/75; PULSE 74; RESP 16; TEMP 37.3; O2SAT 98
--- NOTE | 2022-03-25 22:00 | PC.NURSE ---
mom at the bedside now
== END 2022-03-25 22:43 | disposition home or self-care (01) ==
PROVIDERS: Emergency Provider Internal Medicine
DX: U07.1 COVID-19 (principal); S01.01XA Laceration without foreign body of scalp, initial encounter; S09.90XA Unspecified injury of head, initial encounter; W10.8XXA Fall (on) (from) other stairs and steps, initial encounter; Y93.89 Activity, other specified; Y92.9 Unspecified place or not applicable; Y99.9 Unspecified external cause status; Z87.820 Personal history of traumatic brain injury
CPT/HCPCS: 12004; 70450; 72125; 80053; 82077; 83735; 85025; 87635; 99284

== ENCOUNTER 2022-03-28 09:31 | Outpatient (REF) | payer MEDICARE, MEDICAID, SELFPAY ==
[2022-03-28 10:29] LABS: COVID-19 Test Positive (Negative)
== END 2022-03-28 09:32 | disposition home or self-care (01) ==
LOC: HO.LAB 09:31
PROVIDERS: Visit Provider Internal Medicine
DX: Z20.822 Contact with and (suspected) exposure to COVID-19 (principal)
CPT/HCPCS: 87635; C9803

== ENCOUNTER 2022-04-03 15:49 | Emergency (ER) | payer MEDICARE, MEDICAID, SELFPAY ==
[2022-04-03 16:22] VITALS: PULSE 94; RESP 18; TEMP 36.8; O2SAT 97; BMI 27.3
--- NOTE | 2022-04-03 17:22 | ED_ITS ---
HPI - Recheck/Abnormal Lab/Rx General Chief Complaint: Skin/Abscess/Foreign Body Stated Complaint: staple removal from head Time Seen by Provider: 04/03/22 17:15 Source: patient and family (Father at bedside) Mode of arrival: wheelchair Limitations: other (TBI) History of Present Illness HPI narrative: 37-year-old male with a past medical history of TBI presenting to the ED with his father at bedside for staple removal reports that they have 15 vipin to the left posterior scalp that they placed when he had a mechanical fall on 03/25/2022. He denies any other symptoms complaints or concerns at this time. complaint: suture/staple removal Initial visit (ago): day(s) (9) Initial visit for: laceration Returns today for: staple/stitch removal Symptoms since prior visit: no new symptoms Context: planned re-check Associated symptoms: none Related Data Previous Rx's Medication Instructions Recorded cane #1 ea 10/16/21 Allergies Allergy/AdvReac Type Severity Reaction Status Date / Time No Known Allergies Allergy Verified 12/26/21 14:40 Review of Systems Review of Systems: Constitutional : No Fever, No Chills, Cardiovascular : No Chest Pain, No SOB Respiratory : No Dyspnea Gastrointestinal : No abdominal pain Musculoskeletal : No Joint Swelling Skin : positive healing skin laceration, No Foreign bodies, No rash, No surrounding erythema Neuro : No Weakness, No Numbness/tingling Psych : No SI/HI/thoughts of self injury Yes all other systems are reviewed and are negative PMFSH Past Medical History Attestation statement: The following information was validated with the patient. Source: old records reviewed and nursing notes reviewed Medical History Brain injury Social History Social History Housing: House Alcohol intake: unknown Patient Tobacco Use Status: Former Tobacco user Tobacco use type: Cigarette e-Cigarette/Vaping Use: Never Used Second Hand Smoke Exposure: No Current occupational status: disabled Cognitive needs: Yes Hearing needs: No Vision needs: No Physical Exam Vital Signs: Vital Signs: Last Vital Signs Temp 98.2 F 04/03/22 16:22 Pulse 94 04/03/22 16:22 Resp 18 04/03/22 16:22 Pulse Ox 97 04/03/22 16:22 O2 Del Method 04/03/22 16:22 BMI result Body Mass Index 27.3 vital signs have been reviewed as normal and appeared to be correct. Blood pressure normal Heart rate normal. Respiration rate normal. Temperature normal. Oxygen saturation normal. Appearance: Alert. Oriented X3. No acute distress. Head: To the scalp patient has [address] with well-healing scab. No signs of infection noted. The rest of the external exam is normal. Normocephalic. Atraumatic. Eyes: PERRLA. EOMI. Conjunctiva and sclera normal. Eyelids normal. ENT: Pharynx normal. Uvula midline. Moist mucous membranes. Neck: Normal inspection. Neck supple. FROM. CVS: Normal heart rate and rhythm. Respiratory: No respiratory distress. Painless inspiration. Skin: Skin warm and dry. Normal skin color. Normal skin turgor. No rashes/lesions/lacerations noted. Extremities: Extremities exhibit normal range of motion. Extremities nontender. Neuro: Oriented X 3. At baseline for motor/sensory. Course Course Course Narrative: Patient now status post staple removal. Fifteen vipin removed. Patient tolerated procedure well. No complications. Will DC home with instructions follow-up with PCP and to return if any new or worsening symptoms. Patient with father at bedside understand agree this plan. MDM - Recheck/Abnormal Lab/Rx Medical Records Attestation: I reviewed the patient's medical records. 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
== END 2022-04-03 17:33 | disposition home or self-care (01) ==
LOC: HO.ED 17:30
PROVIDERS: Emergency Provider Internal Medicine; PCP Nurse Practitioner Family
DX: Z48.02 Encounter for removal of sutures (principal); S01.01XD Laceration without foreign body of scalp, subsequent encounter; W19.XXXD Unspecified fall, subsequent encounter
CPT/HCPCS: 99282; 99283

== ENCOUNTER 2023-03-31 08:55 | Outpatient (AMB) | payer MEDICARE, MEDICAID, SELFPAY ==
[2023-03-31 08:57] VITALS: BP 132/78; PULSE 96; O2SAT 96; BMI 29.5
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
== END 2023-03-31 10:58 | disposition home or self-care (01) ==
PROVIDERS: PCP Nurse Practitioner Family; Visit Provider Nurse Practitioner Family
DX: R29.6 Repeated falls (principal); M79.89 Other specified soft tissue disorders; Z13.220 Encounter for screening for lipoid disorders; Z13.29 Encounter for screening for other suspected endocrine disorder
CPT/HCPCS: 99213

== ENCOUNTER 2023-03-31 08:56 | Outpatient (REF) | payer MEDICARE, MEDICAID, SELFPAY ==
--- NOTE | ~2023-03-31 | US_ITS ---
EXAMINATION: US VENOUS ULTRASOUND WITH DOPPLER LOWER EXTREMITY, RIGHT CLINICAL INFORMATION: Right lower extremity swelling. COMPARISON: None available. TECHNIQUE: Ultrasound of the deep veins is performed from the hip to the calf with compression sonography and color and pulse Doppler assessment. Spectral analysis with color-flow imaging is performed. FINDINGS: There is normal venous compression and respiratory variation and augmented flow. The visualized common femoral vein, superficial femoral vein, profunda femoral vein, popliteal vein, and the trifurcation region shows no evidence of deep venous thrombosis. No right popliteal cyst. The subcutaneous soft tissues are unremarkable. US/US venous duplex LE RT IMPRESSION: No evidence for deep venous thrombosis in the visualized veins of the right lower extremity.
== END 2023-03-31 08:57 | disposition home or self-care (01) ==
LOC: HO.HMGCX 08:56
PROVIDERS: PCP Nurse Practitioner Family; Visit Provider Nurse Practitioner Family
DX: M79.89 Other specified soft tissue disorders (principal); R22.41 Localized swelling, mass and lump, right lower limb
CPT/HCPCS: 93971

== ENCOUNTER 2023-04-12 12:18 | Emergency (ER) | payer MEDICARE, MEDICAID, SELFPAY ==
--- NOTE | ~2023-04-12 | XR_ITS ---
EXAMINATION: Bilateral elbow. CLINICAL INDICATION: Elbow pain comparison: Left elbow 05/22/2021. TECHNIQUE: 3 views each elbow. FINDINGS: LEFT ELBOW: There is no visible acute fracture, dislocation or subluxation. There is a small olecranon enthesophyte. Carotid process spur seen previously is not visualized at this time. No abnormal joint effusion or soft tissue swelling seen. RIGHT ELBOW: The elbow joint alignment is maintained normal. There are small olecranon spur. No acute fracture, dislocation or loose bodies. No joint effusion. XR/XR elbow LT 2V IMPRESSION: Small olecranon process enthesophyte right elbow. Moderate-sized olecranon process enthesophyte, stable since 05/22/2021. Small coronoid process spur has improved. No joint effusion or loose bodies. There is no acute fracture or dislocation in either elbow.
--- NOTE | ~2023-04-12 | XR_ITS ---
EXAMINATION: Bilateral elbow. CLINICAL INDICATION: Elbow pain comparison: Left elbow 05/22/2021. TECHNIQUE: 3 views each elbow. FINDINGS: LEFT ELBOW: There is no visible acute fracture, dislocation or subluxation. There is a small olecranon enthesophyte. Carotid process spur seen previously is not visualized at this time. No abnormal joint effusion or soft tissue swelling seen. RIGHT ELBOW: The elbow joint alignment is maintained normal. There are small olecranon spur. No acute fracture, dislocation or loose bodies. No joint effusion. XR/XR elbow RT min 3V IMPRESSION: Small olecranon process enthesophyte right elbow. Moderate-sized olecranon process enthesophyte, stable since 05/22/2021. Small coronoid process spur has improved. No joint effusion or loose bodies. There is no acute fracture or dislocation in either elbow.
[2023-04-12 12:26] VITALS: BP 123/89; PULSE 84; RESP 18; TEMP 37.2; O2SAT 98; BMI 28.9
--- NOTE | 2023-04-12 12:29 | ED.GENADULT ---
HPI - General Adult General Chief complaint: Fall Stated complaint: both elbow discomfort Time Seen by Provider: 04/12/23 14:42 Source: patient and family (Mother) Mode of arrival: wheelchair Limitations: physical limitation History of Present Illness HPI narrative: Patient is a 38-year-old male with history of TBI presenting to the emergency department with reports of left elbow swelling and right elbow scab. He denies pain to either elbow. Mother states that patient frequently bumps his elbows into the lewis while ambulating at home. Patient denies any decreased ROM to either elbow. Patient mother denies recent fevers. Mother reports that patient's right elbow recurrent bleed develops a scab, has been seen by his PCP for this but the scab always returns. MD complaint: left elbow swelling Onset (ago): day(s) Location: upper extremity Associated symptoms: denies other symptoms Treatments prior to arrival: none Related Data Previous Rx's Medication Instructions Recorded cane #1 ea 10/16/21 commode with arm rails #1 ea 02/27/23 naproxen 500 mg tablet 500 mg PO BID #28 tabs 04/12/23 Allergies Allergy/AdvReac Type Severity Reaction Status Date / Time No Known Allergies Allergy Verified 03/31/23 09:58 Review of Systems Review of Systems: As per HPI. Yes all other systems are reviewed and are negative Constitutional: Constitutional: Reports as per HPI [facility] Past Medical History Medical History (Updated 04/12/23 @ 15:22 by Cathy Hernadez NP) Brain injury TBI (traumatic brain injury) Social History Social History Housing: House Alcohol intake: unknown Patient Tobacco Use Status: Former Tobacco user Tobacco use type: Cigarette e-Cigarette/Vaping Use: Never Used Second Hand Smoke Exposure: No Advance Directives: No Advance Directives Information Provided: No Current occupational status: disabled Cognitive needs: Yes Hearing needs: No Vision needs: No Physical Exam ED Vital Signs: Vital Signs - 24 hr 04/12/23 12:26 Temperature 98.9 F Pulse Rate 84 Respiratory Rate 18 Blood Pressure 123/89 Pulse Oximetry 98 Oxygen Delivery Method Room Air BMI result Body Mass Index 28.9 Vital signs have been reviewed and appear to be correct. Blood pressure normal. Heart rate normal. Respiratory rate normal. Temperature normal. Oxygen saturation normal. Const General: cooperative, healthy appearing and no acute distress Orientation/consciousness: oriented to person, oriented to place, oriented to time and patient oriented x3 Limitations: no limitations HENMT Head: Yes normocephalic and Yes atraumatic Ears: external ears normal General nose exam: Normal external nose present Face and sinus: Yes face symmetric Mouth: oropharynx normal and moist mucous membranes Throat: Yes uvula midline Eyes Pupils: Equal, round and reactive pupils present Neck Neck: Yes normal visual inspection and Yes supple Resp Effort & Inspection: normal respiratory effort and able to speak in complete sentences Auscultation: clear to auscultation bilaterally Cardio Rate: regular rate Rhythm: regular rhythm Heart sounds: S1 normal heart sound present and S2 normal heart sound present GI Palpation (GI): Soft to palpation and nontender Auscultation: normoactive bowel sounds General: Yes no CVA tenderness Back/Spine/Pelvis Back: no CVA tenderness Skin General skin exam: elasticity normal and turgor normal Neuro General: oriented to person, oriented to place, oriented to time, patient oriented x3, moves all extremities, no focal motor deficits and CN's II-XI intact bilaterally Cranial nerves: Yes Equal, round and reactive pupils present Cognition (Neuro): normal cognition Extrem General: Yes full ROM, Yes no pedal edema and Yes no calf tenderness Right upper extremity: elbow/forearm Details: abnormal to inspection Details: other (scab to elbow without surround erythema, warmth, or fluctuance), normal ROM and distal pulses intact; no tenderness, no swelling and no unusual warmth Left upper extremity: elbow/forearm Details: abnormal to inspection Details: olecranon swelling, swelling Location: of the olecranon, normal ROM and distal pulses intact; no tenderness, no unusual warmth, no abrasions, no lacerations and no ecchymosis Psych Mental Status: mental status grossly normal Affect: normal affect Thought process: Normal thought process present Course Course Course Narrative: RME: 38 yold male with pmh of Traumatic brain injury presents to the ED for left elbow pain and swelling since yesterday and chronic right elbow pain. Mother states patient may have fallen. Mother states patietn did not hit his head. HPI, PE, and ROS will be done by ED provider. Medical Decision Making Medical Decision Making MDM Narrative: Patient is a 38-year-old male with history of TBI presenting to the emergency department with reports of left elbow swelling and right elbow scab. On exam patient is awake, A+Ox3, VS WNL, afebrile, fluctuance noted to left olecranon, no erythema or warmth, full ROM to left elbow, scab noted to right elbow without surrounding erythema or warmth, full range of motion to right elbow, distal pulses intact bilaterally. Given reported symptoms and physical exam findings, initial differential includes olecranon bursitis, fracture. Do not suspect abscess or cellulitis at this time. X-rays notable for no acute fracture/dislocation. My interpretation is in agreement with the radiologist's interpretation. Will prescribe naproxen 500 mg twice daily for 2 weeks and instructed patient and mother to follow-up with primary care provider. Discussed with patient and mother that it would be beneficial for him to purchase soft elbow pads to wear while ambulating in the house to avoid further trauma to his elbows. Will refer patient to Wound Clinic for additional evaluation of chronic right elbow scab. All results discussed and all questions answered. Patient and mother verbalized understanding of and agreement with plan. Return precautions discussed at bedside. Differential Diagnosis Differential Diagnoses: The differential diagnosis associated with the presentation includes As per MDM. Independent Interpretation I performed an independent interpretation of an: Plain X-Ray Interpretation: No fracture dislocation Radiology Impression Discussion of test interpretation with radiology: I have reviewed the radiologist's reading. Radiologist Impression: XR/XR elbow RT min 3V IMPRESSION: Small olecranon process enthesophyte right elbow. ? Moderate-sized olecranon process enthesophyte, stable since 05/22/2021. Small coronoid process spur has improved. No joint effusion or loose bodies. ? There is no acute fracture or dislocation in either elbow. Independent Historian Clinical information obtained from an independent historian. History obtained from or confirmed by: Parent (mother) External Record Review External record reviewed: Inpatient record, Office record and Outpatient record Prescription Management I considered prescription management with: Other Chronic Conditions Patient?s care impacted by: Other (TBI) Discharge Plan Discharge Clinical Impression: Olecranon bursitis of left elbow Patient Disposition: Home, Self-Care Instructions: Elbow Bursitis (ED) Additional Instructions: You were evaluated in the emergency department today for left elbow swelling which appears consistent with bursitis. You are being prescribed naproxen which you can take daily for the next 2 weeks to decrease inflammation. You should also purchase soft elbow pads to decrease trauma to your elbows wall walking through the house. Please follow-up with your primary care provider this week. Return to the emergency department with new redness, worsening swelling, pain to your elbow, fever 100.4? F or greater or any other concerning symptoms. You are also being referred to the wound clinic for further evaluation of your chronic right elbow scab. Prescriptions: New naproxen 500 mg tablet 500 mg PO BID Qty: 28 0RF No Action (DME) cane Device See Rx Instructions .Route Qty: 1 0RF Rx Instructions: As directed (DME) commode with arm rails See Rx Instructions .Route .MEDSUPPLY Qty: 1 0RF Rx Instructions: As directed Referrals: [facility] Wound Care Management [Provider Group] Interventions: ED Discharge Assessment Last Done: 04/12/23 15:32 Discharge Date/Time: 04/12/23 15:32
== END 2023-04-12 15:32 | disposition home or self-care (01) ==
PROVIDERS: Emergency Provider Emergency Medicine; PCP Nurse Practitioner Family
DX: M70.22 Olecranon bursitis, left elbow (principal); M25.522 Pain in left elbow; M25.521 Pain in right elbow
CPT/HCPCS: 73070; 73080; 99283

== ENCOUNTER 2023-09-14 12:56 | Emergency (ER) | payer MEDICARE, MEDICAID, SELFPAY ==
[2023-09-14 13:20] VITALS: BP 106/63; BP 122/83; PULSE 92; PULSE 99; RESP 18; TEMP 37.2; O2SAT 95; BMI 31.2
[2023-09-14 13:37] VITALS: BP 113/72; PULSE 92; RESP 16; TEMP 36.9
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
== END 2023-09-14 14:21 | disposition home or self-care (01) ==
PROVIDERS: Emergency Provider Emergency Medicine; PCP Nurse Practitioner Family
DX: S09.90XA Unspecified injury of head, initial encounter (principal); W01.0XXA Fall on same level from slipping, tripping and stumbling without subsequent striking against object, initial encounter; Y93.89 Activity, other specified; Y92.89 Other specified places as the place of occurrence of the external cause; Y99.9 Unspecified external cause status
CPT/HCPCS: 99282; 99284

== ENCOUNTER 2023-09-21 07:19 | Emergency (ER) | payer MEDICARE, MEDICAID, SELFPAY ==
[2023-09-21 07:37] VITALS: BP 131/95; PULSE 94; RESP 16; TEMP 36.7; O2SAT 95
--- NOTE | 2023-09-21 07:49 | ED_ITS ---
HPI - Wound/Laceration General Chief Complaint: Wound/Laceration Stated Complaint: fall lac l ear Time Seen by Provider: 09/21/23 07:49 Source: patient and family (mother) Mode of arrival: ambulatory Limitations: physical limitation History of Present Illness HPI narrative: Patient is a 38-year-old male with history of TBI, frequent falls presenting to the ED with mother who reports that patient fell at 7am this morning, hitting his head against his commode. Patient states he lost balance. Mother states this happens to patient frequently. She denies loss of consciousness. He is not anticoagulated. Denies nausea or vomiting. Mother believes patient is UTD on Tdap but is unable to state last dose. Patient denies headache, dizziness, lightheadedness, vision changes. Onset (ago): minute(s) Location: other (left ear) Place: home Patient tetanus UTD: No (unknown) Context: accidental Associated symptoms: none Treatments prior to arrival: bandage Related Data Previous Rx's Medication Instructions Recorded cane #1 ea 10/16/21 commode with arm rails #1 ea 02/27/23 naproxen 500 mg tablet 500 mg PO BID #28 tabs 04/12/23 amoxicillin 875 mg-potassium 1 tab PO BID #10 tabs 09/21/23 clavulanate 125 mg tablet Allergies Allergy/AdvReac Type Severity Reaction Status Date / Time No Known Allergies Allergy Verified 03/31/23 09:58 Review of Systems 2 Review of Systems: As per HPI. Yes all other systems are reviewed and are negative Constitutional: Constitutional: Reports as per HPI [facility], [facility] Past Medical History Medical History TBI (traumatic brain injury) Brain injury Social History Social History Housing: House Alcohol intake: unknown Patient Tobacco Use Status: Former Tobacco user Tobacco use type: Cigarette e-Cigarette/Vaping Use: Never Used Second Hand Smoke Exposure: No Advance Directives: No Advance Directives Information Provided: No Current occupational status: disabled Cognitive needs: Yes Hearing needs: No Vision needs: No Physical Exam 2 Vital Signs: Vital Signs: Last Vital Signs Temp 98.0 F 09/21/23 07:37 Pulse 94 09/21/23 07:37 Resp 16 09/21/23 07:37 BP 131/95 H 09/21/23 07:37 Pulse Ox 95 09/21/23 07:37 O2 Del Method Room Air 09/21/23 07:37 BMI result Body Mass Index 30.0 Vital signs have been reviewed and appear to be correct. Blood pressure normal. Heart rate normal. Respiratory rate normal. Temperature normal. Oxygen saturation normal. Const: General: cooperative, healthy appearing and no acute distress O rientation/consciousness: oriented to person, oriented to place, oriented to time and patient oriented x3 Limitations: no limitations HEENT: Head: Yes normocephalic and Yes atraumatic Ears: hearing grossly normal bilaterally, TM's normal bilaterally and EAC's normal Outer ear/TM images: 1. superficial laceration not involving cartilage, anterior extending superficially and posteriorly General nose exam: Normal external nose present Face and sinus: Yes face symmetric Mouth: oropharynx normal and moist mucous membranes Throat: Yes uvula midline Eyes: Pupils: Equal, round and reactive pupils present Neck: Neck: Yes normal visual inspection and Yes supple Resp: Effort & Inspection: normal respiratory effort and able to speak in complete sentences Auscultation: clear to auscultation bilaterally Cardio: Rate: regular rate Rhythm: regular rhythm Heart sounds: S1 normal heart sound present and S2 normal heart sound present GI: Palpation (GI): Soft to palpation and nontender Auscultation: n ormoactive bowel sounds : General: Yes no CVA tenderness Back/Spine/Pelvis: Back: no CVA tenderness Skin: General skin exam: elasticity normal and turgor normal Neuro: General: oriented to person, oriented to place, oriented to time, patient oriented x3, moves all extremities, no focal motor deficits and CN's II- XI intact bilaterally Cranial nerves: Yes Equal, round and reactive pupils present Cognition (Neuro): normal cognition Extrem: General: Yes full ROM, Yes no pedal edema and Yes no calf tenderness Psych: Mental Status: mental status grossly normal Affect: normal affect Thought process: Normal thought process present Medications Administered Discontinued Medications Generic Name Dose Route Start Last Admin Trade Name Freq PRN Reason Stop Dose Admin Diphtheria/Tetanus/Acell Pertussis 0.5 ml 09/21/23 07:56 09/21/23 08:02 Diphth,Pertus(Acell),Tet Adult 0.5 Ml Syringe IM 09/21/23 07:57 0.5 ml .ONCE ONE Administration Lidocaine HCl 5 ml 09/21/23 07:55 09/21/23 08:03 Lidocaine Hcl 1 % Mpf 5 Ml Vial INFILTRATI 09/21/23 07:56 5 ml ONCE ONE Administration Medical Decision Making Medical Decision Making [facility] Narrative: Patient is a 38-year-old male with history of TBI, frequent falls presenting to the ED with mother who reports that patient fell at 7am this morning, hitting his head against his commode. On exam patient is awake, A+Ox3, VS WNL, afebrile, normal neurological exam without focal deficits, physical exam findings as above. Given reported symptoms and physical exam findings, initial differential includes left ear laceration, cartilage injury. Laceration repaired as per procedure note. Will cover with Augmentin to prevent infection. Tdap updated at today's visit. Instructed patient and mother follow-up with patient's PCP. Suture removal in 5 days. Return precautions discussed at bedside. Patient and mother verbalized understanding of and agreement with plan. Differential Diagnosis Differential Diagnoses: The differential diagnosis associated with the presentation includes As per MDM. Independent Historian Clinical information obtained from an independent historian. History obtained from or confirmed by: Parent (mother) External Record Review External record reviewed: Inpatient record, Office record and Outpatient record Prescription Management I considered prescription management with: Antibiotic Procedures Laceration Laceration 1: Site: other (ear) Side (If applicable): left Size (cm): 1 Description: linear Depth: simple, single layer Local Anesthetic: lidocaine 1% Amount of anesthesia used (mL): 1 Pre-repair: wound explored, irrigated extensively and deep structures intact Skin layer closed with: other (prolene) Size (cm): 6-0 Number of sutures: 4 Technique: simple, interrupted Discharge Plan Discharge Clinical Impression: Laceration of left ear Patient Disposition: Home, Self-Care Instructions: Diphtheria/Pertussis/Tetanus Vaccine (By injection), Care For Your Stitches (DC), Laceration (DC) Additional Instructions: You have been evaluated in the emergency department today for a laceration to your ear. Your laceration was repaired in the emergency department with sutures. You are being prescribed antibiotics to prevent infection, please complete the full course as prescribed. Your Tdap (tetanus vaccine) was updated today. Please keep the area surrounding the laceration clean and dry and assess the wound daily. Keep the area out of direct sunlight for the next 6 months to help prevent scarring. You should have the sutures removed in 5 days. If you develop fever, redness, swelling at the site of your laceration, or thick yellow drainage please come back to the ER for a wound check. Prescriptions: New amoxicillin-pot clavulanate 875-125 mg tablet 1 tab PO BID Qty: 10 0RF No Action (DME) cane Device See Rx Instructions .Route Qty: 1 0RF Rx Instructions: As directed (DME) commode with arm rails See Rx Instructions .Route .MEDSUPPLY Qty: 1 0RF Rx Instructions: As directed naproxen 500 mg tablet 500 mg PO BID Qty: 28 0RF
[2023-09-21] MEDS: Diphth,Pertus(ACell),Tet Adult 0.5 ML SYRINGE IM (08:02)
[2023-09-21] MEDS: Lidocaine HCl 1 % MPF 5 ML VIAL INFILTRATI (08:03)
--- NOTE | 2023-09-21 08:06 | PC.NURSE ---
medicated per the MAR, mother remains at bedside.
== END 2023-09-21 08:46 | disposition home or self-care (01) ==
PROVIDERS: Emergency Provider Emergency Medicine; PCP Nurse Practitioner Family
DX: S01.312A Laceration without foreign body of left ear, initial encounter (principal); W18.39XA Other fall on same level, initial encounter; Y93.9 Activity, unspecified; Y92.002 Bathroom of unspecified non-institutional (private) residence as the place of occurrence of the external cause; Y99.9 Unspecified external cause status; Z23 Encounter for immunization
CPT/HCPCS: 12011; 90471; 90715; 99282; 99284

== ENCOUNTER 2023-09-25 13:52 | Emergency (ER) | payer MEDICARE, MEDICAID, SELFPAY ==
[2023-09-25 14:25] VITALS: BP 128/86; PULSE 95; RESP 20; TEMP 37; O2SAT 96; BMI 31.6
--- NOTE | 2023-09-25 14:25 | ED.GENADULT ---
HPI - General Adult General Chief complaint: General Medical Stated complaint: stiches removal Time Seen by Provider: 09/25/23 15:13 Source: patient and family (patient's mother) Mode of arrival: wheelchair Limitations: no limitations History of Present Illness HPI narrative: Patient is a 38 year old assigned male at with a history of TBI presenting to the emergency department today for suture removal. Patient states that on 09/21/2023 he fell and had a left ear laceration that was sutured together with 4 prolene sutures. Patient denies any dizziness, lightheadedness, abdominal pain, nausea, vomiting, fever, chills, blurry vision, double vision, loss of vision, chest pain, difficulty breathing, shortness of breath, back pain, night sweats, pain with urination, increased urinary frequency, increased urinary urgency, blood in his urine or stool, syncope or a near syncopal episode, bowel incontinence, bladder incontinence, bowel retention, bladder retention, or any other complaints at this time. Onset (ago): day(s) (4) Relieving factors: none Exacerbating factors: none Associated symptoms: denies other symptoms Related Data Previous Rx's Medication Instructions Recorded cane #1 ea 10/16/21 commode with arm rails #1 ea 02/27/23 naproxen 500 mg tablet 500 mg PO BID #28 tabs 04/12/23 amoxicillin 875 mg-potassium 1 tab PO BID #10 tabs 09/21/23 clavulanate 125 mg tablet Allergies Allergy/AdvReac Type Severity Reaction Status Date / Time No Known Allergies Allergy Verified 09/25/23 14:27 Review of Systems Constitutional: Constitutional: Reports no additional constitutional complaints, Denies chills, Denies fever(s) and Denies night sweats Eyes: Eyes: Reports no additional eye complaints, Denies blurry vision, Denies change in vision, Denies diplopia, Denies eye discharge, Denies loss of vision and Denies eye pain ENT: Denies dizziness Comments: 4 sutures in the left ear Cardiovascular: Cardiovascular: Reports no additional cardiovascular complaints, Denies chest pain, Denies lightheadedness, Denies Loss of Consciousness and Denies dyspnea Respiratory: Respiratory: Reports no additional respiratory complaints and Denies dyspnea Gastrointestinal: Gastrointestinal: Reports no additional gastrointestinal complaints, Denies abdominal pain, Denies melena, Denies hematochezia, Denies change in bowel habits and Denies change in stool character Genitourinary: Genitourinary: Reports no additional male genitourinary complaints, Denies hematuria, Denies oliguria, Denies difficulty urinating, Denies dysuria, Denies urinary frequency, Denies urinary hesitancy, Denies urinary incontinence and Denies urinary urgency Musculoskeletal: Musculoskeletal: Reports no additional musculoskeletal complaints, Denies numbness and Denies tingling Neurologic: Denies dizziness, Denies loss of vision, Denies numbness and Denies tingling Psychiatric: Psychiatric: Reports no additional psychiatric complaints Endocrine: Endocrine: Reports no additional endocrine complaints Hematologic/Lymphatic: Hematologic/Lymphatic: Reports no additional hematologic/lymphatic complaints Allergic/Immunologic: Allergic/Immunologic: Reports no additional allergic/immunologic complaints PMFSH Past Medical History Attestation statement: The following information was validated with the patient. (patient's mother validated all information) Source: old records reviewed, obtained from family (patient's mother provided additional history and confirmed the history provided by the patient.) and nursing notes reviewed Medical History TBI (traumatic brain injury) Brain injury Social History Social History Housing: House Alcohol intake: unknown Patient Tobacco Use Status: Former Tobacco user Tobacco use type: Cigarette e-Cigarette/Vaping Use: Never Used Second Hand Smoke Exposure: No Advance Directives: No Advance Directives Information Provided: No Current occupational status: disabled Cognitive needs: Yes Hearing needs: No Vision needs: No Physical Exam ED Vital Signs: Vital Signs - 24 hr 09/25/23 14:25 Temperature 98.6 F Pulse Rate 95 Respiratory Rate 20 Blood Pressure 128/86 Pulse Oximetry 96 Oxygen Delivery Method Nasal Cannula BMI result Body Mass Index 31.6 Const General: cooperative, no acute distress, alert and awake Nutritional Appearance: well nourished Orientation/consciousness: patient oriented x3 Limitations: no limitations HENMT Head: Yes normal to inspection and Yes atraumatic Ears: hearing grossly normal bilaterally and other ([address] to the superior aspect of the L external ear) General nose exam: Normal external nose present, no nasal discharge noted and no epistaxis Face and sinus: Yes normal facial exam, No abrasion and No laceration Mouth: Normal oral and palatal mucosa present, no drooling and no muffled voice Eyes General: appearance normal, both eyes and all related structures Periorbital: periorbital findings normal Eyelids: Yes eyelids normal Conjunctivae: conjunctivae normal Pupils: Equal, round and reactive pupils present EOM: EOMs intact bilaterally Neck Neck: Yes normal visual inspection, Yes full ROM and Yes no lymphadenopathy Chest Chest palpation & inspection: normal inspection of the chest Resp Effort & Inspection: normal respiratory effort and able to speak in complete sentences GI Inspection: Yes normal to inspection Neuro General: patient oriented x3 and moves all extremities Cranial nerves: Yes Equal, round and reactive pupils present Cognition (Neuro): normal cognition Motor exam (neuro): 5/5 motor strength present throughout Sensory Exam: Normal double simultaneous stimulation for sensation Coordination: [id number] test normal Extrem General: Yes normal to inspection, Yes full ROM and Yes capillary refill normal Psych Appearance: grossly normal Mental Status: mental status grossly normal Affect: normal affect Attitude: cooperative Thought process: Normal thought process present Thought content: Normal thought content present Insight: Good insight present (Psych) Course Course Course Narrative: RME performed by Shawna Terrazas PA-C. Patient is a 38 year old assigned male at presenting to the emergency department for suture removal from his left ear. Detailed physical exam and review of systems are deferred to the system developer associate manager. Patient placed back in the waiting room pending room availability. Procedures Procedure Narrative Procedure Narrative: 4 sutures removed from the left superior external ear. Wound well approximated and healing well. Medical Decision Making Medical Decision Making MDM Narrative: Patient is a 38 year old assigned male at with a history of TBI presenting to the emergency department today for removal of sutures. Patient's physical exam was as noted in the physical exam portion of this note. I explained my physical exam findings to the patient and the patient's mother. I answered all questions asked by the patient and the patient's mother. Patient's sutures were removed, without incident. I stressed the importance of the patient taking his medication as prescribed. I stressed the importance of the patient following up with his primary care provider. I stressed the importance of the patient returning to the emergency department immediately if his symptoms were to worsen or if he were to develop any dizziness, shortness of breath, difficulty breathing, chest pain, blurry vision, loss of vision, nausea, vomiting, abdominal pain, fever, chills, back pain, or any other complaints. Patient and the patient's mother verbalized agreement and understanding with this treatment plan and discharge. Differential Diagnosis Differential Diagnoses: The differential diagnosis associated with the presentation includes Suture removal from left ear Independent Historian Clinical information obtained from an independent historian. History obtained from or confirmed by: Parent (patient's mother provided additional history and confirmed history provided by the patient.) Discharge Plan Discharge Clinical Impression: Visit for suture removal Patient Disposition: Home, Self-Care Instructions: Stitches Removal (ED) Additional Instructions: Follow up with your primary care provider. Return to the emergency department immediately if your symptoms worsen or if you develop any dizziness, shortness of breath, difficulty breathing, chest pain, blurry vision, loss of vision, nausea, vomiting, abdominal pain, fever, chills, back pain, or any other complaints. Prescriptions: No Action (DME) cane Device See Rx Instructions .Route Qty: 1 0RF Rx Instructions: As directed (DME) commode with arm rails See Rx Instructions .Route .MEDSUPPLY Qty: 1 0RF Rx Instructions: As directed naproxen 500 mg tablet 500 mg PO BID Qty: 28 0RF amoxicillin-pot clavulanate 875-125 mg tablet 1 tab PO BID Qty: 10 0RF Referrals: Mir Hill, [employer]ATOR-[employer] [Primary Care Provider] - Interventions: ED Discharge Assessment Last Done: 09/25/23 15:18 Discharge Date/Time: 09/25/23 15:19 Print Language: Thai
== END 2023-09-25 15:19 | disposition home or self-care (01) ==
PROVIDERS: Emergency Provider Emergency Medicine Emergency Medical Services; PCP Nurse Practitioner Family
DX: Z48.02 Encounter for removal of sutures (principal)
CPT/HCPCS: 99282

== ENCOUNTER 2024-06-01 14:48 | Emergency (ER) | payer MEDICARE, MEDICAID, SELFPAY ==
--- NOTE | ~2024-06-01 | CT_ITS ---
EXAMINATION: CT HEAD WITHOUT IV CONTRAST CT CERVICAL SPINE WITHOUT IV CONTRAST INDICATION: Head trauma, laceration COMPARISON: CT head and cervical spine on 03/25/2022 TECHNIQUE: Multidetector CT acquisitions of the head and cervical spine were obtained without IV contrast. Multiplanar reformats were acquired and utilized for image interpretation. This CT examination was performed using dose optimization techniques as appropriate, variously including the following: *Automated exposure control *Adjustment of mA and/or kV according to patient size (this includes techniques or standardized protocols for targeted exams where dose is matched to indication/reason for exam; i.e. extremities or head) *Use of iterative reconstruction technique FINDINGS: HEAD: No acute intracranial hemorrhage or infarct. The hassan-white matter differentiation is preserved. Encephalomalacic changes involving the right superior frontal gyrus. No midline shift or hydrocephalus. No acute extra-axial fluid collections. The osseous structures are unremarkable. Small defect involving the right parietal scalp tissues, likely posttraumatic. No orbital pathology. The paranasal sinuses and mastoid air cells are clear. CERVICAL SPINE: There is anatomic alignment of the vertebral bodies and posterior elements. There is no acute fracture and there is no acute subluxation. The craniocervical and atlantoaxial articulations are normal. There is no prevertebral soft tissue swelling. No significant soft tissue abnormality within the neck. The visualized lung apices are clear. CT/CT cervical spine wo IV con IMPRESSION: -No acute intracranial abnormality. Right parietal scalp tissue laceration. -No acute osseous abnormality within the cervical spine. Electronically signed by: Robert Bajwa MD 06/01/2024 06:09 PM EDT
--- NOTE | ~2024-06-01 | CT_ITS ---
EXAMINATION: CT HEAD WITHOUT IV CONTRAST CT CERVICAL SPINE WITHOUT IV CONTRAST INDICATION: Head trauma, laceration COMPARISON: CT head and cervical spine on 03/25/2022 TECHNIQUE: Multidetector CT acquisitions of the head and cervical spine were obtained without IV contrast. Multiplanar reformats were acquired and utilized for image interpretation. This CT examination was performed using dose optimization techniques as appropriate, variously including the following: *Automated exposure control *Adjustment of mA and/or kV according to patient size (this includes techniques or standardized protocols for targeted exams where dose is matched to indication/reason for exam; i.e. extremities or head) *Use of iterative reconstruction technique FINDINGS: HEAD: No acute intracranial hemorrhage or infarct. The hassan-white matter differentiation is preserved. Encephalomalacic changes involving the right superior frontal gyrus. No midline shift or hydrocephalus. No acute extra-axial fluid collections. The osseous structures are unremarkable. Small defect involving the right parietal scalp tissues, likely posttraumatic. No orbital pathology. The paranasal sinuses and mastoid air cells are clear. CERVICAL SPINE: There is anatomic alignment of the vertebral bodies and posterior elements. There is no acute fracture and there is no acute subluxation. The craniocervical and atlantoaxial articulations are normal. There is no prevertebral soft tissue swelling. No significant soft tissue abnormality within the neck. The visualized lung apices are clear. CT/CT head/brain wo IV con IMPRESSION: -No acute intracranial abnormality. Right parietal scalp tissue laceration. -No acute osseous abnormality within the cervical spine. Electronically signed by: Robert Bajwa MD 06/01/2024 06:09 PM EDT
[2024-06-01 15:18] VITALS: BP 129/80; PULSE 88; RESP 18; TEMP 36.6; O2SAT 96; BMI 29.5
[2024-06-01] MEDS: Lidocaine 4 % Cream KIT 2 APPL TOPICAL (15:57)
--- NOTE | 2024-06-01 17:39 | ED.HEATRA ---
HPI - Head Injury General Chief complaint: Head Injury Stated complaint: head lac-brain inj prior Time Seen by Provider: 06/01/24 15:40 Source: patient, family, EMS, RN notes reviewed and old records reviewed Mode of arrival: EMS History of Present Illness ED Provider: Kandis Velázquez PA-C HPI Narrative: 39-year-old male with a past medical history TBI, frequent falls, presenting to the ED via EMS complaining of head injury/laceration s/p mechanical fall when got up to use the bathroom [employer] [employer] [employer]. Mother reports patient with + head strike on edge of wall. Admits patient falls frequently, however currently at baseline. Tetanus up-to-date. Denies anticoagulation use. Mother denies LOC, heard fall & ran to patient. patient denies complaints at present. History obtained from mother. Related Data Previous Rx's ?Medication ?Instructions ?Recorded cane #1 ea 10/16/21 commode with arm rails #1 ea 02/27/23 naproxen 500 mg tablet 500 mg PO BID #28 tabs 04/12/23 amoxicillin 875 mg-potassium 1 tab PO BID #10 tabs 09/21/23 clavulanate 125 mg tablet Allergies Allergy/AdvReac Type Severity Reaction Status Date / Time No Known Allergies Allergy Verified 06/01/24 15:20 Review of Systems Review of Systems: Yes all other systems are reviewed and are negative Constitutional: Constitutional: Reports as per [facility] Past Medical History Attestation statement: The following information was validated with the patient. Source: old records reviewed Medical History TBI (traumatic brain injury) Brain injury Social History Social History Housing: House Alcohol intake: unknown Patient Tobacco Use Status: Former Tobacco user Tobacco use type: Cigarette e-Cigarette/Vaping Use: Never Used Second Hand Smoke Exposure: No Advance Directives: No Advance Directives Information Provided: No Current occupational status: disabled Cognitive needs: Yes Hearing needs: No Vision needs: No Physical Exam Vital Signs: Vital Signs: Last Vital Signs Temp 97.8 F 06/01/24 15:18 Pulse 88 06/01/24 15:18 Resp 18 06/01/24 15:18 BP 129/80 06/01/24 15:18 Pulse Ox 96 06/01/24 15:18 O2 Del Method Room Air 06/01/24 15:18 BMI result Body Mass Index 29.5 Const: General: cooperative, healthy appearing and no acute distress Orientation/consciousness: patient oriented x3 Limitations: no limitations HEENT: Other: + large 6.0 cm laceration & avulsion noted to posterior scalp, bleeding controlled. No palpable step-off. Head: Yes normal to inspection, No Aguillon's sign and No raccoon eyes Ears: hearing grossly normal bilaterally General nose exam: Normal external nose present Face and sinus: Yes normal facial exam Mouth: Normal oral and palatal mucosa present Throat: Yes posterior oropharynx normal Eyes: General: appearance normal, both eyes and all related structures Pupils: Equal, round and reactive pupils present EOM: EOMs intact bilaterally Neck: Neck: Yes normal visual inspection, Yes no meningeal signs and No anterior neck swelling Resp: Effort & Inspection: normal respiratory effort and no respiratory distress Auscultation: clear to auscultation bilaterally Cardio: Rate: regular rate Heart sounds: S1 normal heart sound present and S2 normal heart sound present GI: Inspection: Yes normal to inspection Palpation (GI): Soft to palpation, nontender, no guarding and not rigid Back/Spine/Pelvis: Other: No midline cervical/thoracic/lumbar spinous tenderness/step-off or deformity Skin: Rashes: no rashes Neuro: General: patient oriented x3, tone normal, moves all extremities, no meningeal signs, no focal motor deficits and CN's II-XI intact bilaterally Cranial nerves: Yes CN's II-XII intact bilaterally and Yes Equal, round and reactive pupils present Cognition (Neuro): normal cognition (at baseline) Motor exam (neuro): 5/5 motor strength present throughout Extrem: General: Yes normal to inspection Course Course Course Narrative: 1823--CT head/brain wo IV con/CT cervical spine wo IV con IMPRESSION: -No acute intracranial abnormality. Right parietal scalp tissue laceration. -No acute osseous abnormality within the cervical spine. Results discussed with patient including worrisome signs and symptoms and strict return precautions, and when to return to the emergency department. They verbalized understanding and feel safe for discharge at this time. Medications Administered Discontinued Medications Generic Name Dose Route Start Last Admin Trade Name Freq PRN Reason Stop Dose Admin Acetaminophen 650 mg 06/01/24 17:46 06/01/24 18:10 Acetaminophen 325 Mg Tablet PO 06/01/24 17:47 650 mg ONCE ONE Administration Lidocaine HCl 2 appl 06/01/24 15:52 06/01/24 15:57 Lidocaine 4 % Cream Kit TOPICAL 06/01/24 15:53 2 appl ONCE ONE Administration Protocol Medical Decision Making Medical Decision Making MDM Narrative: 39-year-old male with a past medical history TBI, frequent falls, presenting to the ED via EMS complaining of head injury/laceration s/p mechanical fall when got up to use the bathroom [employer] [facility]. On exam vital signs stable, NAD, nontoxic appearing, no focal neuro deficits. Physical exam as noted above with large laceration to posterior scalp. Concern for fracture vs ICH and laceration. No evidence of infection. Plan: Head/C-spine CT, repair wound Please refer to course for remaining clinical decision making, interpretation of labs/imaging results, and discussions with consultants and/or family members. Differential Diagnosis Differential Diagnoses: The differential diagnosis associated with the presentation includes As above Admission/Observation Consideration of admission/observation: Escalation of care including admission/observation considered Independent Interpretation I performed an independent interpretation of an: CT Scan Radiology Impression Discussion of test interpretation with radiology: I have reviewed the radiologist's reading. Independent Historian Clinical information obtained from an independent historian. History obtained from or confirmed by: Parent External Record Review External record reviewed: Inpatient record, Office record, Outpatient record, Prior outpatient labs, Prior outpatient radiology, Primary care record and Outside ED record Tests considered The following testing was considered but not selected: As above Prescription Management I considered prescription management with: Pain Medication Chronic Conditions Patient?s care impacted by: Other Procedures Laceration Laceration 1: Site: scalp Size (cm): 6 Description: flap and irregular Local Anesthetic: other anesthetic (LMX) Pre-repair: wound explored and irrigated extensively Skin layer closed with: other (vipin) Number of sutures: 13 Discharge Plan Discharge Clinical Impression: Head injury, Laceration of scalp Patient Disposition: Still a Patient Instructions: Laceration (DC), Head Injury (ED) Additional Instructions: Please take Tylenol at home for headache. If headache persists or worsens/becomes unbearable, patient has change in mental status or persistent nausea/vomiting return to the emergency department Your wounds were repaired today in the emergency department. Keep dry and clean. You need to return to any emergency department, urgent care, or your PCPs office in 7-10 days for staple removal Apply bacitracin and or Neosporin daily If area begins look infected, is red, there is drainage, streaking, or you have fever please return to the emergency department Prescriptions: No Action (DME) cane Device See Rx Instructions .Route Qty: 1 0RF Rx Instructions: As directed (DME) commode with arm rails See Rx Instructions .Route .MEDSUPPLY Qty: 1 0RF Rx Instructions: As directed naproxen 500 mg tablet 500 mg PO BID Qty: 28 0RF amoxicillin-pot clavulanate 875-125 mg tablet 1 tab PO BID Qty: 10 0RF Referrals: Mir Hill, [employer] [Primary Care Provider] - 3 days Print Language: Citizen Of [place]
[2024-06-01] MEDS: Acetaminophen 325 MG TABLET 650 MG PO (18:10)
[2024-06-01 18:47] VITALS: BP 129/80; PULSE 88; RESP 18; TEMP 36.6; O2SAT 96
== END 2024-06-01 18:48 | disposition home or self-care (01) ==
PROVIDERS: Emergency Provider Internal Medicine; PCP Nurse Practitioner Family
DX: S09.90XA Unspecified injury of head, initial encounter (principal); S01.01XA Laceration without foreign body of scalp, initial encounter; W22.01XA Walked into wall, initial encounter; Y93.89 Activity, other specified; Y92.013 Bedroom of single-family (private) house as the place of occurrence of the external cause; Y99.9 Unspecified external cause status
CPT/HCPCS: 12002; 70450; 72125; 99283; 99284

== ENCOUNTER 2024-06-10 11:24 | Emergency (ER) | payer MEDICARE, MEDICAID, SELFPAY ==
--- NOTE | 2024-06-10 11:32 | ED.GENADULT ---
HPI - General Adult General Chief complaint: General Medical Stated complaint: need stitches removed Time Seen by Provider: 06/10/24 11:52 Source: patient and family (mother) Mode of arrival: wheelchair History of Present Illness ED Provider: Maricarmen MACIEL narrative: Patient is a 39-year-old male with a past medical history TBI, frequent falls presenting for removal of vipin placed on 06/01 to scalp. Denies any discharge, drainage, pain. States has not washed his hair since vipin were placed. MD complaint: staple removal Location: head Associated symptoms: denies other symptoms Related Data Previous Rx's ?Medication ?Instructions ?Recorded cane #1 ea 10/16/21 commode with arm rails #1 ea 02/27/23 naproxen 500 mg tablet 500 mg PO BID #28 tabs 04/12/23 amoxicillin 875 mg-potassium 1 tab PO BID #10 tabs 09/21/23 clavulanate 125 mg tablet Allergies Allergy/AdvReac Type Severity Reaction Status Date / Time No Known Allergies Allergy Verified 06/10/24 11:38 Review of Systems Review of Systems: As per HPI Yes all other systems are reviewed and are negative Constitutional: Constitutional: Reports as per HPI [facility] Past Medical History Medical History TBI (traumatic brain injury) Brain injury Social History Social History Housing: House Alcohol intake: unknown Patient Tobacco Use Status: Former Tobacco user Tobacco use type: Cigarette e-Cigarette/Vaping Use: Never Used Second Hand Smoke Exposure: No Current occupational status: disabled Cognitive needs: Yes Hearing needs: No Vision needs: No Physical Exam ED Vital Signs: Vital Signs - 24 hr 06/10/24 11:33 Temperature 98.4 F Pulse Rate 90 Respiratory Rate 18 Blood Pressure 124/79 Pulse Oximetry 96 Oxygen Delivery Method Room Air BMI result Body Mass Index 30.4 Vital signs have been reviewed and appear to be correct. Blood pressure normal. Heart rate normal. Respiratory rate normal. Temperature normal. Oxygen saturation normal. Const General: cooperative, healthy appearing and no acute distress Orientation/consciousness: oriented to person, oriented to place, oriented to time and patient oriented x3 Limitations: no limitations HENMT Other: wound appears to be healing well, edges well approximated Head: Yes normocephalic and Yes atraumatic Ears: external ears normal General nose exam: Normal external nose present Face and sinus: Yes face symmetric Mouth: oropharynx normal and moist mucous membranes Throat: Yes uvula midline Eyes Pupils: Equal, round and reactive pupils present Neck Neck: Yes normal visual inspection and Yes supple Resp Effort & Inspection: normal respiratory effort and able to speak in complete sentences Auscultation: clear to auscultation bilaterally Cardio Rate: regular rate Rhythm: regular rhythm Heart sounds: S1 normal heart sound present and S2 normal heart sound present GI Palpation (GI): Soft to palpation and nontender Auscultation: normoactive bowel sounds General: Yes no CVA tenderness Back/Spine/Pelvis Back: no CVA tenderness Skin General skin exam: elasticity normal and turgor normal Neuro General: oriented to person, oriented to place, oriented to time, patient oriented x3, moves all extremities, no focal motor deficits and CN's II-XI intact bilaterally Cranial nerves: Yes Equal, round and reactive pupils present Cognition (Neuro): normal cognition Extrem General: Yes full ROM, Yes no pedal edema and Yes no calf tenderness Psych Mental Status: mental status grossly normal Affect: normal affect Thought process: Normal thought process present Medical Decision Making Medical Decision Making MDM Narrative: Patient is a 39-year-old male with a past medical history TBI, frequent falls presenting for removal of vipin placed on 06/01 to scalp. On exam patient is awake, A+Ox3, VS WNL, afebrile, normal neurological exam without focal deficits, physical exam findings as above. Given reported symptoms and physical exam findings, initial differential includes suture removal, delayed wound healing, cellulitis. Wound appears to be healing well without signs of infection. 13 vipin removed. Ongoing care discussed with patient and mother. Return precautions discussed. Patient and mother verbalized understanding of and agreement with plan. Differential Diagnosis Differential Diagnoses: The differential diagnosis associated with the presentation includes As per [facility] Independent Historian Clinical information obtained from an independent historian. History obtained from or confirmed by: Parent External Record Review External record reviewed: Inpatient record, Office record and Outpatient record Discharge Plan Discharge Clinical Impression: Encounter for staple removal Patient Disposition: Home, Self-Care Additional Instructions: You were seen in the emergency department today for staple removal. Your wound appears to be healing well. Please keep the area surrounding the wound clean and dry. You can take a shower but just let the water run over your scalp. Do not use shampoo or scrub the area. Do not submerge in water until fully healed. Please continue to assess the wound daily. Keep the area out of direct sunlight for the next 6 months to help prevent scarring. If you develop fever, redness, swelling at the site of your laceration, or thick yellow drainage please come back to the ER for a wound check. Prescriptions: No Action (DME) cane Device See Rx Instructions .Route Qty: 1 0RF Rx Instructions: As directed (DME) commode with arm rails See Rx Instructions .Route .MEDSUPPLY Qty: 1 0RF Rx Instructions: As directed naproxen 500 mg tablet 500 mg PO BID Qty: 28 0RF amoxicillin-pot clavulanate 875-125 mg tablet 1 tab PO BID Qty: 10 0RF Interventions: ED Discharge Assessment Last Done: 06/10/24 12:11 Print Language: Tajik
[2024-06-10 11:33] VITALS: BP 124/79; PULSE 90; RESP 18; TEMP 36.9; O2SAT 96; BMI 30.4
[2024-06-10 12:11] VITALS: BP 124/79; PULSE 90; RESP 18; TEMP 36.9; O2SAT 96
== END 2024-06-10 12:13 | disposition home or self-care (01) ==
PROVIDERS: Emergency Provider Emergency Medicine; PCP Nurse Practitioner Family
DX: Z48.02 Encounter for removal of sutures (principal)
CPT/HCPCS: 99282

== ENCOUNTER 2024-08-08 08:24 | Emergency (ER) | payer MEDICARE, MEDICAID, SELFPAY ==
--- NOTE | ~2024-08-08 | XR_ITS ---
EXAMINATION: XR RIBS, RIGHT CLINICAL INFORMATION: Right posterior rib pain. COMPARISON: 02/17/2019. TECHNIQUE: 3 views of the right ribs were obtained. FINDINGS: The lung volumes are low. There is no gross pneumothorax. Heart size within normal limits. No displaced right rib fracture appreciated. A 0.8 cm nodular density overlies the anterior aspect of the right fifth rib, best appreciated on the AP view and also overlying the right costophrenic angle. This appears to lie outside of bony structures on oblique view, possibly related to soft tissue nodule such as a nipple shadow. Chest radiographs after placement of nipple markers recommended for further evaluation. XR/XR ribs RT min 3V w CXR1V IMPRESSION: 1. No displaced right rib fracture appreciated. 2. A 0.8 cm nodular density overlies the anterior aspect of the right fifth rib, best appreciated on the AP view and also overlying the right costophrenic angle. This appears to lie outside of bony structures on oblique view, possibly related to soft tissue nodule such as a nipple shadow. Chest radiographs after placement of nipple markers recommended for further evaluation. This study was presented today to August 08, 2024 for interpretation. Stat results provided at this time as requested by referring provider. Electronically signed by: Rose Mckay MD 08/08/2024 09:27 AM PRADEEP LOPEZ
[2024-08-08 08:32] VITALS: BP 110/74; BP 120/73; PULSE 86; PULSE 87; RESP 18; TEMP 36.8; O2SAT 96; BMI 27.4
--- NOTE | 2024-08-08 08:35 | ED_ITS ---
HPI - Fall General Chief Complaint: Fall Stated Complaint: R shoulder pain/ Fall from w/c from snf Source: patient and old records reviewed Mode of arrival: EMS Limitations: no limitations History of Present Illness ED Provider: DELONTE MACIEL Narrative: 39 yo male with PMH of hypothyroidism, TBI, frequent falls, uses backless wheelchair at baseline and today was in wheelchair and slipped and fell backwards no headstrike no LOC picked up by staff immediately injured R posterior ribs on R side and scapula. He denies any other injuries. 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 Fall witnessed: yes, by living facility staff Place fall occurred: home Loss of consciousness: none Prolonged down time: no Symptoms prior to fall: none Context: tripped/slipped Location of injury: other (R posterior scapula area) Severity: mild Quality: dull Associated symptoms (after fall): denies Related Data Previous Rx's ?Medication ?Instructions ?Recorded cane #1 ea 10/16/21 commode with arm rails #1 ea 02/27/23 naproxen 500 mg tablet 500 mg PO BID #28 tabs 04/12/23 amoxicillin 875 mg-potassium 1 tab PO BID #10 tabs 09/21/23 clavulanate 125 mg tablet Allergies Allergy/AdvReac Type Severity Reaction Status Date / Time No Known Allergies Allergy Verified 08/08/24 08:33 Review of Systems Review of Systems: Constitutional : No Fever, No Chills ENT/Mouth : No Ear Pain, No Hoarseness, No sore throat Eyes: No Eye Pain, No Swelling, No Redness, No Foreign Body Cardiovascular : No Chest Pain, No SOB Respiratory : No Cough, No Dyspnea Gastrointestinal : No Nausea, No Vomiting, No Diarrhea, No abdominal Pain Genitourinary : No Dysuria, No Hematuria Musculoskeletal : positive joint pain, No Myalgias, No Joint Swelling Skin : No Skin lacerations, No rash Neuro : No Weakness, No Numbness, No Loss of Consciousness, No Dizziness, No Headache All other systems reviewed and are negative [facility] Past Medical History Attestation statement: The following information was validated with the patient. Source: old records reviewed Medical History TBI (traumatic brain injury) Brain injury Social History Social History Housing: House Alcohol intake: unknown Patient Tobacco Use Status: Former Tobacco user Tobacco use type: Cigarette Smoked in Last 30 Days: No e-Cigarette/Vaping Use: Never Used Second Hand Smoke Exposure: No Use of substances other than those prescribed or required for medical reasons: No Advance Directives: No Advance Directives Information Provided: Yes Do you have a plan to hurt others: No Plan Current occupational status: disabled Cognitive needs: Yes Hearing needs: No Vision needs: No Physical Exam Vital Signs: Vital Signs: Last Vital Signs Temp 98.3 F 08/08/24 08:32 Pulse 86 08/08/24 08:32 Resp 18 08/08/24 08:32 BP 120/73 08/08/24 08:32 Pulse Ox 96 08/08/24 08:32 O2 Del Method Room Air 08/08/24 08:32 BMI result Body Mass Index 27.4 Appearance: Alert. Oriented X3. No acute distress. Eyes: Pupils equal, round and reactive to light. ENT: Pharynx normal. atraumatic Neck: Normal inspection. Neck supple. no midline ttp Back: no midline ttp no signs of deformity, R scapula ttp CVS: Normal heart rate and rhythm. Pulses normal. Respiratory: No respiratory distress. Breath sounds normal. Abdomen: Soft and nontender. Skin: Skin warm and dry. Normal skin color. Normal skin turgor. Extremities: No lower extremity edema. Neuro: Oriented X 3. no deficits from baseline, slow speech but fluent - baseline Medical Decision Making Medical Decision Making MDM Narrative: 39 yo male with PMH of hypothyroidism, TBI, frequent falls here with c/o trip and slip from WC height - injured R posterior shoulder. He has no neck pain, midline back pain, headstrike or LOC not on thinners at this time will obtain rib film and reassess. Differential Diagnosis Differential Diagnoses: The differential diagnosis associated with the presentation includes contusion, rib injury Admission/Observation Consideration of admission/observation: Escalation of care including admission/observation considered at baseline no acute findings stable for DC Independent Interpretation I performed an independent interpretation of an: Plain X-Ray (no fracture) Radiology Impression Discussion of test interpretation with radiology: I have reviewed the radiologist's reading. Independent Historian Clinical information obtained from an independent historian. History obtained from or confirmed by: EMS External Record Review External record reviewed: Outpatient record Discharge Plan Discharge Clinical Impression: Sprain of posterior shoulder joint Patient Disposition: Home, Self-Care Instructions: Shoulder Sprain (ED) Additional Instructions: no acute findings on xray which included top of shoulder, posterior ribs, scapula, clavicle return for any new pain or worsening symptoms follow up with your doctor as needed Prescriptions: No Action (DME) cane Device See Rx Instructions .Route Qty: 1 0RF Rx Instructions: As directed (DME) commode with arm rails See Rx Instructions .Route .MEDSUPPLY Qty: 1 0RF Rx Instructions: As directed naproxen 500 mg tablet 500 mg PO BID Qty: 28 0RF amoxicillin-pot clavulanate 875-125 mg tablet 1 tab PO BID Qty: 10 0RF Print Language: Danish
[2024-08-08 10:19] VITALS: BP 120/73; PULSE 86; RESP 18; TEMP 36.8; O2SAT 96
== END 2024-08-08 10:19 | disposition home or self-care (01) ==
PROVIDERS: Emergency Provider Emergency Medicine; PCP Nurse Practitioner Family
DX: S43.401A Unspecified sprain of right shoulder joint, initial encounter (principal); R07.81 Pleurodynia; W05.0XXA Fall from non-moving wheelchair, initial encounter; Y93.89 Activity, other specified; Y92.098 Other place in other non-institutional residence as the place of occurrence of the external cause; Y99.8 Other external cause status
CPT/HCPCS: 71101; 99283

== ENCOUNTER 2025-06-01 13:42 | Outpatient (AMB) | payer MEDICARE, MEDICAID, SELFPAY ==
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
[2025-06-01 14:31] VITALS: BP 128/92; PULSE 80; RESP 16; O2SAT 97
[2025-06-01 15:09] VITALS: BP 122/80
== END 2025-06-01 15:21 | disposition home or self-care (01) ==
LOC: HO.HMCC 13:42
PROVIDERS: PCP Nurse Practitioner Family; Visit Provider Nurse Practitioner Family
DX: Z00.00 Encounter for general adult medical examination without abnormal findings (principal); L30.9 Dermatitis, unspecified; S06.9XAA Unspecified intracranial injury with loss of consciousness status unknown, initial encounter; Z11.1 Encounter for screening for respiratory tuberculosis

== ENCOUNTER → 2025-06-01 13:42 | Outpatient (BNVA) | payer MEDICARE, MEDICAID, SELFPAY | PROVIDERS: PCP Nurse Practitioner Family; Visit Provider Nurse Practitioner Family | DX: Z00.01 Encounter for general adult medical examination with abnormal findings (principal); R21 Rash and other nonspecific skin eruption; Z87.820 Personal history of traumatic brain injury | CPT/HCPCS: 99212; 99396 ==

== ENCOUNTER 2025-06-19 07:34 | Outpatient (REF) | payer MEDICARE, MEDICAID, SELFPAY ==
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
[2025-06-19 08:34] LABS: Appearance Urine Clear; Glucose Urine UA Negative (Negative); PH 5.0 (5.0-9.0); Specific Gravity - Urine 1.025 (1.005-1.025)
[2025-06-19 08:35] LABS: Hematocrit 50.3 % (42.0-52.0); Hemoglobin 16.8 g/dl (14.0-18.0); Imm Gran Abs Auto 0.02 X10*3/uL (0.00-0.03); Imm Gran Pct Auto 0.3 % (0.0-0.4); Lymphocytes Absolute Auto 2.0 X10*3/uL (1.2-4.9); MANUAL DIFF FLAG SCAN; Mean Corpuscular HGB Conc 33.4 g/dl (31.0-36.0); Mean Corpuscular Hemoglobin 28.4 pg (27.0-33.0); Mean Corpuscular Volume 85.0 fL (80.0-98.0); NRBC Abs Auto 0.000 X10*3/uL (0.0-0.012); NRBC Pct Auto 0.0 /100WBC (0.0-0.2); PLT CLUMP 1; Red Blood Count 5.92 X10*6/uL (4.60-5.80); SCAN SMEAR FLAG 1
[2025-06-19 08:49] LABS: Alanine Aminotransferase 65 U/L (0-40); Albumin Level 4.4 g/dL (3.5-5.0); Alkaline Phosphatase 89 U/L (39-117); Anion Gap 12 (12-20); Aspartate Amino Transferase 39 U/L (5-37); Blood Urea Nitrogen 17 mg/dL (9-16); Calcium 8.7 mg/dL (8.4-10.2); Carbon Dioxide 25 mmol/L (22-29); Chloride 107 mmol/L (96-108); Cholesterol 185 mg/dL (<200); Estimated Glomerular Filt Rate > 60; HDL Cholesterol 31 mg/dL (>40); Potassium 4.2 mmol/L (3.3-5.1); Sodium 140 mmol/L (135-145); Total Protein 7.7 g/dL (6.5-8.0); Triglycerides 125 mg/dL (<150)
[2025-06-19 08:59] LABS: Platelet Count 200 X10*3/uL (160-400); White Blood Count 5.7 X10*3/uL (4.8-10.8)
[2025-06-22 17:48] LABS: TS Negative Control Passed; TS Panel A 0; TS Panel B 0; TS Positive Control Passed; TSpotTB Negative (Negative)
== END 2025-06-19 07:35 | disposition home or self-care (01) ==
LOC: HO.LAB 07:34
PROVIDERS: PCP Nurse Practitioner Family; Visit Provider Nurse Practitioner Family
DX: Z00.00 Encounter for general adult medical examination without abnormal findings (principal); Z11.1 Encounter for screening for respiratory tuberculosis; Z13.29 Encounter for screening for other suspected endocrine disorder; Z13.6 Encounter for screening for cardiovascular disorders
CPT/HCPCS: 36415; 80053; 80061; 81003; 84443; 85025; 86481

== ENCOUNTER 2025-08-18 08:51 | Outpatient (REF) | payer MEDICARE, MEDICAID, SELFPAY ==
--- NOTE | ~2025-08-18 | US_ITS ---
CLINICAL HISTORY: R74.8 - Abnormal levels of other serum enzymes US abdomen complete Comparison: None provided Findings: The visualized pancreas is normal. The aorta and inferior vena cava are normal caliber. Liver measures 14.9 cm in length. Increased hepatic echotexture. There is no intrahepatic bile duct dilatation. Common bile duct not seen. The gallbladder is normal. There is no sonographic Saenz sign. The main portal vein is antegrade. The right kidney is 10.2 cm in length. The left kidney is 10.7 cm in length. Unremarkable kidneys without hydronephrosis. The spleen is normal. Spleen measures 10.7 cm in length. No ascites. IMPRESSION: Hepatic steatosis. This document has been electronically signed by: Marianela Toth MD on 08/18/2025 09:59:19
--- OUTSIDE RECORDS SUMMARY | 2025-08-18 08:54 | XMS_ITS | Clinical Summary ---
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 Name Role Phone Mir Hill NP Primary [...] file Insurance MEDICARE PART A & B Member Subscriber Plan / Payer (Ef fective 2011-Present) Name:Loki Esteves Member ID:[id number] Relation to Subscriber:Self Name:Loki Esteves Subscriber ID:[id number] Payer ID:[id number] Group ID:Not on file Type:Medicare Address: [employer] [address] [place] [address] [place] Member Subscriber Plan / Payer ( fective 2019-Present) Name:Loki Esteves Relation to Subscriber:Self Name:Loki Esteves Payer ID:[id number] Group ID:Not on file Type:Medicaid Address: [address] [phone] MEDICARE PART A & B Member Subscriber Plan / Payer ( fective 2011-Present) Name:Loki Esteves Member ID:[id number] Relation to Subscriber:Self Name:Loki Estvees Subscriber ID:[id number] Payer ID:[id number] Group ID:Not on file Type:Medicare Address: [employer] [address] [place] [address] [id number] [place] [address] Member Subscriber Plan / Payer ( fective 2019-Present) Name:Loki Esteves Relation to Subscriber:Self Name:Loki Esteves Payer ID:[id number] Group ID:Not on file Type:Medicaid Address: [address] [phone] MEDICARE PART A & B Member Subscriber Plan / Payer (Ef fective 2011-Present) Name:Loki Esteves Member ID:[id number] Relation to Subscriber:Self Name:EstevesLoki Subscriber ID:[id number] Payer ID:[id number] Group ID:Not on file Type:Medicare Address: [employer] [address] [place] [address] [place] Member Subscriber Plan / Payer ( fective 2019-Present) Name:Loki Esteves Relation to Subscriber:Self Name:Loki Esteves Payer ID:[id number] Group ID:Not on file Type:Medicaid Address: [address] [phone] MEDICARE PART A & B Member Subscriber Plan / Payer ( fective 2011-Present) Name:Loki Esteves Member ID:[id number] Relation to Subscriber:Self Name:Loki Esteves Subscriber ID:[id number] Payer ID:[id number] Group ID:Not on file Type:Medicare Address: [employer] [address] [place] [phone] [place] Member Subscriber Plan / Payer ( fective 2019-Present) Name:Loki Esteves Relation to Subscriber:Self Name:Loki Esteves Payer ID:[id number] Group ID:Not on file Type:Medicaid Address: [address] [id number] MEDICARE PART A & B Member Subscriber Plan / Payer ( fective 2011-Present) Name:Loki Esteves Member ID:[id number] Relation to Subscriber:Self Name:Loki Esteves Subscriber ID:[id number] Payer ID:[id number] Group ID:Not on file Type:Medicare Address: [employer] [address] [place] [address] [facility] Subscriber Plan / Payer ( fective 2019-Present) Name:Loki Esteves Relation to Subscriber:Self Name:Loki Esteves Payer ID:[id number] Group ID:Not on file Type:Medicaid Address: [address] [phone] MEDICARE PART A & B Member Subscriber Plan / Payer ( fective 2011-Present) Name:Loki Esteves Member ID:[id number] Relation to Subscriber:Self Name:Loki Esteves Subscriber ID:[id number] Payer ID:[id number] Group ID:Not on file Type:Medicare Address: [employer] [address] [place] [address] [facility] Member Subscriber Plan / Payer ( fective 2019-Present) Name:Loki Esteves Relation to Subscriber:Self Name:EstevesLoki Payer ID:[id number] Group ID:Not on file Type:Medicaid Address: [address] [address] MEDICARE PART A & B Member Subscriber Plan / Payer ( fective 2011-Present) Name:EstevesLoki muir Member ID:[id number] Relation to Subscriber:Self Name:EstevesLoki Subscriber ID:[id number] Payer ID:[id number] Group ID:Not on file Type:Medicare Address: [employer] [address] [place] [address] [place] Member Subscriber Plan / Payer ( fective 2019-Present) Name:Loki Esteves Relation to Subscriber:Self Name:Linn Loki Payer ID:[id number] Group ID:Not on file Type:Medicaid Address: [address] [address] MEDICARE PART A & B Member Subscriber Plan / Payer ( fective 2011-Present) Name:EstevesLoki Member ID:[id number] Relation to Subscriber:Self Name:EstevesLoki Subscriber ID:[id number] Payer ID:[id number] Group ID:Not on file Type:Medicare Address: [employer] [address] [place] [address] [place] [phone] MEDICARE PART A & B [facility] [place]N WHAL[place] [phone] Care Teams Metal Ceiling Hanger Relationship Specialty Start Date End Date Mir Hill NP [address] [place] [address] PCP - General Family Medicine 04/21/19 Additional Source Comments The information contained in this document represents components of the legal health record. It is not the complete legal health record.[facility]
== END 2025-08-18 08:52 | disposition home or self-care (01) ==
LOC: HO.US 08:51
PROVIDERS: PCP Nurse Practitioner Family; Visit Provider Nurse Practitioner Family
DX: R74.8 Abnormal levels of other serum enzymes (principal)
CPT/HCPCS: 76700